=== PATIENT | male | born 1950 | race African-American/Black ===

== ENCOUNTER → 2016-11-20 | Outpatient (CLI) | payer MEDICARE ==
[2015-12-04 11:00] VITALS: BP 157/69
[~2016-11-20] MED LIST: ASPI-630 PO; CONTRAST GIVEN MC PRN
[2016-11-20 09:14] LABS: CREATININE 1.2 mg/dL (0.7-1.3); GFR 73.3
[2016-11-20] MEDS: IOHEXOL 240 MG/ML 50ML VIAL. PO ONE (09:30)
[2016-11-20] MEDS: IOHEXOL 300 MG/ML 75 ML VIAL IV ONE (09:30)
--- NOTE | 2016-11-20 11:30 | RAD ---
CT chest, abdomen and pelvis Indication: Malignant neoplasm of transverse colon. Surveillance scan. Technique: CT of the chest, abdomen and pelvis with 75 mL of Omnipaque 300 and 50 mL of Omnipaque 240 by mouth with multi planar reformats. Comparison: CT chest from 12/[address] abdomen/pelvis from 11/22/2015 Findings: CT chest: Neck bases clear. No axillary, hilar adenopathy. Shotty mediastinal lymph nodes. Aortic arch calcifications noted. Heart is normal in size. No pericardial or pleural effusion. Diffuse emphysematous changes in the lungs. Mild subsegmental atelectasis or scarring in the lung bases. No pulmonary nodules. No focal consolidation. 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 Spleen is within normal limits. No radiopaque gallstones. Pancreas show no focal lesion. Adrenal glands show no nodularity. Bilateral simple renal cysts. No suspicious renal lesion. No retroperitoneal or pelvic adenopathy. There is a lobulated minimally enhancing soft tissue in the central mesentery measuring 2.0 x 2.3 cm, new from prior study (series 4 image 36). Status post right hemicolectomy. No bowel obstruction. Scattered atherosclerotic disease of the infrarenal aorta and bilateral common iliac arteries. Bladder show circumferential wall thickening without focal lesion. Prostate is mildly enlarged measuring 5.0 x 3.9 cm with central calcification. Calcification of the right seminal vesicle noted. Surgical sutures seen within bilateral inguinal canals. Stable mixed lucent and sclerotic appearance of the L5 vertebral body likely intraosseous hemangioma. Severe L4-L5 lumbar facet arthropathy. Stable appearance of the left iliac bone with coarsened trabecula and internal patchy lucencies and sclerosis. Impression: 1. No evidence of metastatic disease in the chest or pelvis. 2. Lobulated soft tissue in the central mesentery, new from prior study concerning for metastatic implant. 3. Stable patchy appearance of the left iliac bone. Findings may be seen in Paget's disease. Clinically correlate with lab values. 4. Circumferential bladder wall thickening with mildly enlarged prostate. Findings may secondary to chronic bladder obstruction or cystitis. Correlate with urinalysis PQRS Compliance Statement: One or more of the following individualized dose reduction techniques were utilized for this examination: 1. Automated exposure control 2. Adjustment of the mA and/or kV according to patient size 3. Use of iterative reconstruction technique
== END | disposition home or self-care (01) ==
LOC: CT 08:47
PROVIDERS: ATTEND Internal Medicine Hematology & Oncology
DX: C18.4 Malignant neoplasm of transverse colon (principal); N30.90 Cystitis, unspecified without hematuria; N40.0 Benign prostatic hyperplasia without lower urinary tract symptoms; Z87.891 Personal history of nicotine dependence
CPT/HCPCS: 36415; 71260; 74177; 82565; Q9966; Q9967

== ENCOUNTER → 2016-12-06 | Outpatient (CLI) | payer MEDICARE ==
[2015-12-04 11:00] VITALS: BP 157/69
[~2016-12-06] MED LIST changes: -CONTRAST GIVEN MC PRN
--- NOTE | 2016-12-06 10:27 | RAD ---
Indication rising CEA. End. PET/CT was performed. CT was performed primarily for localization and attenuation purposes as opposed to primary diagnostic purposes. Note is made of the CT imaging of the chest, abdomen and pelvis 11/20/2016. The blood sugar during the examination was 119. 14.3 mCi of FDG was administered. No prior PET/CT imaging is available. On CT the visualized brain appears normal. No abnormality is seen in the neck. The chest, abdomen and pelvis appear unchanged relative to the recent CT imaging of same. The known mesenteric soft tissue mass is reproduced. Normal physiologic FDG activity is seen in the head. No abnormal activity is seen in the neck. There is slightly increased FDG activity in the esophagus. This may reflect inflammation. If esophageal pathology is suspect endoscopy would be advised. The FDG is otherwise physiologically distributed in the chest. In the abdomen the known soft tissue mesenteric mass is FDG avid with a maximum SUV of 7.4. The finding is most compatible with a metastatic implant. No additional significant abnormal activity is seen in the abdomen or pelvis. There is slightly increased FDG activity involving the left iliac bone at its far posterior margin. Some cortical thickening is noted in this area on CT. The findings may be a reflection of Paget disease. Sclerotic metastatic disease is felt less likely. IMPRESSION: Known soft tissue mesenteric mass is FDG avid most compatible with a metastatic implant. Slightly increased FDG activity in the esophagus may reflect mild inflammation. Clinical correlation advised. If esophageal pathology is suspect endoscopy would be advised Slightly increased FDG activity involving the left iliac bone. The etiology is unclear but likely benign
== END | disposition home or self-care (01) ==
LOC: PETSC 07:32
PROVIDERS: ATTEND Internal Medicine Hematology & Oncology
DX: C18.4 Malignant neoplasm of transverse colon (principal); R97.0 Elevated carcinoembryonic antigen [CEA]
CPT/HCPCS: 78815; A9552

== ENCOUNTER 2016-12-20 10:51 | Inpatient (IN) | payer MEDICARE ==
[2016-12-20] VITALS (9 sets, daily range): BP systolic 128–145; BP diastolic 78–87
[~2016-12-20] VITALS: Ht 172.7 cm; Wt 73.5 kg
[2016-12-20] MEDS: IV RINGERS,LACTATED 1000ML 1,000 ML IV SCH ×4 (10:40→19:15)
[~2016-12-20 10:51] MED LIST changes: +NEOM500T PO; +ceFAZolin 1GM IVPB FOR OMNI 1 GM/50 ML BAG IV ONE; +metroNIDAZOLE 500mg PREMIX 500 MG/100 ML BAG IV ONE
[2016-12-20] MEDS ORDERED: LIDOCAINE 1% PF 2 ML VIAL. ID PRN ×2 (11:15→17:30)
[2016-12-20] MEDS ORDERED: fentaNYL PF VIAL 100 MCG/2 ML VIAL IV PRN ×4 (11:15→17:30)
[2016-12-20] MEDS ORDERED: MIDAZOLAM HCL/PF 2 MG/2 ML VIAL. IV PRN (11:15)
[2016-12-20] MEDS ORDERED: BUPIVACAINE-EPI 0.25%-1:200000 50 ML VIAL. ONE (11:48)
[2016-12-20] MEDS ORDERED: LIDOCAINE 2% PF Vial for OR 5 ML VIAL. ONE (12:11)
[2016-12-20] MEDS ORDERED: FAMOTIDINE 20 MG/2 ML VIAL ONE (12:11)
[2016-12-20] MEDS ORDERED: PROPOFOL 20 ML IV ONE (12:11)
[2016-12-20] MEDS ORDERED: DEXAMETHASONE SOD PHOS 20 MG/5 ML VIAL. ONE (12:11)
[2016-12-20] MEDS ORDERED: ONDANSETRON PF 4 MG/2 ML VIAL. ONE (12:11)
[2016-12-20] MEDS ORDERED: MIDAZOLAM HCL/PF 2 MG/2 ML VIAL. ONE (12:13)
[2016-12-20] MEDS ORDERED: fentaNYL PF VIAL 100 MCG/2 ML VIAL ONE (12:13)
[2016-12-20] MEDS ORDERED: ROCURONIUM 50 MG/5 ML VIAL. ONE (12:13)
[2016-12-20] MEDS ORDERED: LIDOCAINE 2% TOPICAL JELLY 5GM TUBE. TP ONE (12:15)
[2016-12-20] MEDS ORDERED: SEVOFLURANE > 120 MINUTES. IH ONE (12:59)
[2016-12-20] MEDS ORDERED: 0.9 % SODIUM CHLORIDE 50 ML VIAL. IJ ONE (13:09)
[2016-12-20] MEDS ORDERED: MORPHINE SULFATE 10 MG/ML VIAL. ONE (13:10)
[2016-12-20] MEDS ORDERED: BUPIVACAINE-EPI 0.5%-1:200000 50 ML VIAL. ONE (14:04)
[2016-12-20] MEDS ORDERED: NEOSTIGMINE 10 MG/10 ML VIAL. ONE (15:15)
[2016-12-20] MEDS ORDERED: GLYCOPYRROLATE 1 MG/5 ML VIAL. ONE (15:15)
[2016-12-20] MEDS ORDERED: 0.9 % SODIUM CHLORIDE 10 ML DISP.SYRIN. IV PRN (16:45)
[2016-12-20] MEDS ORDERED: ceFAZolin SODIUM 1 GM in IV DEXTROSE 5% 50 ML IV SCH (16:45)
[2016-12-20] MEDS ORDERED: KETOROLAC 15 MG/ML VIAL. IV PRN (16:45)
[2016-12-20] MEDS ORDERED: ONDANSETRON PF 4 MG/2 ML VIAL. IV PRN ×2 (16:45→17:30)
[2016-12-20] MEDS ORDERED: PROCHLORPERAZINE 10 MG/2 ML VIAL. ONE (17:23)
[2016-12-20] MEDS ORDERED: IV RINGERS,LACTATED 1000ML 1,000 ML IV SCH (17:24)
[2016-12-20] MEDS ORDERED: PROCHLORPERAZINE 10 MG/2 ML VIAL. IV PRN (17:30)
[2016-12-20] MEDS ORDERED: HYDROmorphone 2 MG/ML VIAL IV PRN (17:30)
[2016-12-20] MEDS ORDERED: MORPHINE SULFATE 2 MG/ML DISP.SYRIN. IV PRN (17:30)
[2016-12-20] MEDS: POTASSIUM CL 20MEQ-0.45% NACL 1,000 ML IV SCH (22:26)
[2016-12-20] MEDS: FAMOTIDINE 20 MG/2 ML VIAL IVP SCH (22:27)
[2016-12-20] MEDS: ceFAZolin SODIUM IV Push 1 GM VIAL. IVP SCH (22:27)
[2016-12-21 03:00] VITALS: BP 120/88
[2016-12-21 05:17] LABS: BASO % 0 % (0-3); EOS % 0 % (0-3); HEMATOCRIT 45.3 % (39.0-53.0); LYMPH % 13 % (24-48); MEAN CORPUSCULAR HEMOGLOBIN 30 pg (25-35); MEAN CORPUSCULAR HGB CONC 33 g/dL (31-37); MEAN CORPUSCULAR VOLUME 89 fL (79-100); MONO % 10 % (0-9); NEUT % 77 % (31-73); PLATELET COUNT 216 x10^3/uL (140-400); RED BLOOD COUNT 5.08 x10^6/uL (4.30-5.70); RED CELL DISTRIBUTION WIDTH 13.9 % (11.5-14.5); WHITE BLOOD COUNT 7.6 x10^3/uL (4.0-11.0)
[2016-12-21 05:21] LABS: ALBUMIN 3.4 g/dL (3.4-5.0); ALBUMIN/GLOBULIN RATIO 0.9 (1.0-1.7); CALCIUM 8.5 mg/dL (8.5-10.1); CREATININE 1.1 mg/dL (0.7-1.3); TOTAL PROTEIN 7.2 g/dL (6.4-8.2)
[2016-12-21 05:22] LABS: TOTAL BILIRUBIN 0.8 mg/dL (0.2-1.0)
[2016-12-21] MEDS: ceFAZolin SODIUM IV Push 1 GM VIAL. IVP SCH ×2 (05:31→14:40)
[2016-12-21] MEDS: POTASSIUM CL 20MEQ-0.45% NACL 1,000 ML IV SCH ×3 (05:32→16:26)
[2016-12-21] MEDS ORDERED: SALIVA STIMULANT AGENT 44ML SPRAY BOTTLE. PO PRN (06:45)
[2016-12-21 07:00] VITALS: BP 132/83
[2016-12-21] MEDS: FAMOTIDINE 20 MG/2 ML VIAL IVP SCH ×2 (10:08→21:11)
--- NOTE | 2016-12-21 10:12 | PDOC ---
SURGICAL PROGRESS NOTE Subjective POD #1 Doing very well POD 1. He is very alert and has the normal incisional pain that is controlled with pain meds. Says he feels well but is having a little trouble breathing which is likely due to post op pain and sleep apnea that he has.. He has normal breath sounds bilaterally. He says he has been using his incentive spirometer and will continue to do so. Will have oncologist see patient and the med team also follow. Vital Signs Vital Signs Date Time Temp Pulse Resp B/P (MAP) Pulse Ox O2 Delivery O2 Flow Rate FiO2 12/21/16 07:00 98.1 84 20 132/83 (99) 96 Nasal Cannula 2.0 98.1 Labs Laboratory Tests Test 12/21/16 04:15 White Blood Count 7.6 x10^3/uL (4.0-11.0) Red Blood Count 5.08 x10^6/uL (4.30-5.70) Hemoglobin 15.0 g/dL (13.0-17.5) Hematocrit 45.3 % (39.0-53.0) Mean Corpuscular Volume 89 fL (79-100) Mean Corpuscular Hemoglobin 30 pg (25-35) Mean Corpuscular Hemoglobin Concent 33 g/dL (31-37) Red Cell Distribution Width 13.9 % (11.5-14.5) Platelet Count 216 x10^3/uL (140-400) Neutrophils (%) (Auto) 77 % (31-73) Lymphocytes (%) (Auto) 13 % (24-48) Monocytes (%) (Auto) 10 % (0-9) Eosinophils (%) (Auto) 0 % (0-3) Basophils (%) (Auto) 0 % (0-3) Neutrophils # (Auto) 5.8 x10^3uL (1.8-7.7) Lymphocytes # (Auto) 1.0 x10^3/uL (1.0-4.8) Monocytes # (Auto) 0.7 x10^3/uL (0.0-1.1) Eosinophils # (Auto) 0.0 x10^3/uL (0.0-0.7) Basophils # (Auto) 0.0 x10^3/uL (0.0-0.2) Sodium Level 138 mmol/L (136-145) Potassium Level 5.0 mmol/L (3.5-5.1) Chloride Level 104 mmol/L (98-107) Carbon Dioxide Level 27 mmol/L (21-32) Anion Gap 7 (6-14) Blood Urea Nitrogen 17 mg/dL (8-26) Creatinine 1.1 mg/dL (0.7-1.3) Estimated GFR (Cockcroft-Gault) 81.0 BUN/Creatinine Ratio 15 (6-20) Glucose Level 132 mg/dL (70-99) Calcium Level 8.5 mg/dL (8.5-10.1) Total Bilirubin 0.8 mg/dL (0.2-1.0) Aspartate Amino Transf (AST/SGOT) 20 U/L (15-37) Alanine Aminotransferase (ALT/SGPT) 27 U/L (16-63) Alkaline Phosphatase 80 U/L (46-116) Total Protein 7.2 g/dL (6.4-8.2) Albumin 3.4 g/dL (3.4-5.0) Albumin/Globulin Ratio 0.9 (1.0-1.7) Laboratory Tests Test 12/21/16 04:15 White Blood Count 7.6 x10^3/uL (4.0-11.0) Red Blood Count 5.08 x10^6/uL (4.30-5.70) Hemoglobin 15.0 g/dL (13.0-17.5) Hematocrit 45.3 % (39.0-53.0) Mean Corpuscular Volume 89 fL (79-100) Mean Corpuscular Hemoglobin 30 pg (25-35) Mean Corpuscular Hemoglobin Concent 33 g/dL (31-37) Red Cell Distribution Width 13.9 % (11.5-14.5) Platelet Count 216 x10^3/uL (140-400) Neutrophils (%) (Auto) 77 % (31-73) Lymphocytes (%) (Auto) 13 % (24-48) Monocytes (%) (Auto) 10 % (0-9) Eosinophils (%) (Auto) 0 % (0-3) Basophils (%) (Auto) 0 % (0-3) Neutrophils # (Auto) 5.8 x10^3uL (1.8-7.7) Lymphocytes # (Auto) 1.0 x10^3/uL (1.0-4.8) Monocytes # (Auto) 0.7 x10^3/uL (0.0-1.1) Eosinophils # (Auto) 0.0 x10^3/uL (0.0-0.7) Basophils # (Auto) 0.0 x10^3/uL (0.0-0.2) Sodium Level 138 mmol/L (136-145) Potassium Level 5.0 mmol/L (3.5-5.1) Chloride Level 104 mmol/L (98-107) Carbon Dioxide Level 27 mmol/L (21-32) Anion Gap 7 (6-14) Blood Urea Nitrogen 17 mg/dL (8-26) Creatinine 1.1 mg/dL (0.7-1.3) Estimated GFR (Cockcroft-Gault) 81.0 BUN/Creatinine Ratio 15 (6-20) Glucose Level 132 mg/dL (70-99) Calcium Level 8.5 mg/dL (8.5-10.1) Total Bilirubin 0.8 mg/dL (0.2-1.0) Aspartate Amino Transf (AST/SGOT) 20 U/L (15-37) Alanine Aminotransferase (ALT/SGPT) 27 U/L (16-63) Alkaline Phosphatase 80 U/L (46-116) Total Protein 7.2 g/dL (6.4-8.2) Albumin 3.4 g/dL (3.4-5.0) Albumin/Globulin Ratio 0.9 (1.0-1.7) TRICIA LOPEZ MD Dec 21, 2016 10:12
--- NOTE | 2016-12-21 10:26 | OP ---
DATE OF SURGERY: 12/20/2016 SURGEON: Abel Lopez MD. PREOPERATIVE DIAGNOSIS: Intra-abdominal tumor. POSTOPERATIVE DIAGNOSIS: Intra-abdominal tumor in the mesentery between the mesocolon and the small bowel. ANESTHESIA: General. PROCEDURE: Enterolysis with exploratory laparotomy and excision of mass of abdomen. The patient had colon cancer and had only 1 mets seen on PET scan and the oncologist decided to make sense to remove this one localization of tumor; therefore, the surgery was done. TECHNIQUE: Under general anesthesia, the patient was properly prepped and draped in routine fashion. The patient's abdomen was entered through the midline incision that had previously been made. We made certain not to injure any intraabdominal contents been very slow. The adhesions were fairly minimum as Seprafilm was used during the previous operation. We then after entering the abdomen, opened it up above and below the umbilicus. We then identified the colon and divided only a small bit of adhesions and we could see where the anastomosis of the small bowel and colon was done. We then divided some of the adhesions around the area and at the area where we had sutured the mesentery of the colon and small bowel together. Deep to this was a mass. The mass was about 3 cm or 4 cm in size. We had a difficult time getting to it, but we divided the serosa over it and then slowly divided the attachments to it. It looked like it may have been a lymph node, but could tell, we were very gentle and went very slowly so as not to avoid mesenteric vessels especially to the small bowel. We slowly removed the mass with some difficulty and no bleeding. This was sent to pathology. I did get a frozen section to make certain what was going on. The patient had previously had localization radiographically and the dye was seen there also. The pathologist did confirm that it was infiltrating adenocarcinoma, same type seen at the colon resection surgery, so this was metastasis to the lymph node we assume. As such, the only 1 side of the mesentery had been opened and we did not close it. We simply put all the bowel back into normal position and did do Seprafilm again. Sponge count, lap count and all counts were correct and we therefore proceeded to close the abdomen. #1 Prolene interrupted sutures were used to close the fascia and the subcutaneous was approximated using #4-0 Vicryl and the skin was closed using skin staplers. The procedure was terminated as sterile dressing was applied. The blood loss was probably 20-25 mL. Fluids given can be obtained from the anesthesia sheet. No drains were used and the condition of the patient is satisfactory as he has returned to the recovery room. ABEL LOPEZ MD DR: BETH/tania JOB#: [id number] / [id number]
[2016-12-21 11:00] VITALS: BP 120/76
--- NOTE | 2016-12-21 11:16 | HP ---
ADMIT DATE: 12/20/2016 HISTORY OF PRESENT ILLNESS: The patient is admitted because of a lesion found on CT scan in the mesentery. He has a pertinent history and that he did have about a year ago, transverse and right colon resection for adenocarcinoma infiltrating of the colon. Actually the tumor and the mass was closer to the splenic flexure of the transverse colon. He had other lesions and these were removed. He did well postoperatively, chemotherapy was offered, he did not want chemotherapy. He discussed with the oncologist. Now, he has recently had a CEA that was elevated and also has PET scan which shows a hot area in the mesentery and also on CT. He therefore had seen the oncologist and they suggest removing this mass, he has no evidence of any spread of the tumor anywhere else in the body. He agrees and that is why he is here. PAST MEDICAL HISTORY: Otherwise, is not changed from his previous history and physical done prior to surgery. ALLERGIES: He has no allergies. FAMILY HISTORY: Negative. No history of cancer. SOCIAL HISTORY: Shows that he does not use illicit drugs, smokes about a half a pack of cigarettes per day and drinks only socially not enough to get inebriated. PHYSICAL EXAMINATION: HEAD, EYES, NOSE AND THROAT: Grossly normal. CHEST: Clear bilaterally to auscultation. HEART: Had no murmurs, heaves, friction rubs or thrills and had a regular rate of 70 beats per minute. ABDOMEN: Soft, did have a midline scar of previous surgery, otherwise no hernia or other abnormalities. His pelvic did have 2 scars from repair of a right and left inguinal hernia that he had done many years ago. RECTAL: Not done. He did have a recent colonoscopy, which was normal. IMPRESSION: 1. Tumor mesentery of the mesocolon. 2. History of infiltrating adenocarcinoma of the transverse colon. 3. Hypercholesterolemia. TRICIA LOPEZ MD DR: BETH/tania JOB#: [id number] / [id number]
[2016-12-21 15:00] VITALS: BP 138/85
--- NOTE | 2016-12-21 17:48 | PDOC ---
Provider Note Provider Note Hem Onc Consult: 1. Recurrent colon ca s/p mesenteric mass resection 12/20/16 Await path results See dictation [id number] DAPHNEY NAIDU MD Dec 21, 2016 17:48
[2016-12-21 19:05] VITALS: BP 128/87
[2016-12-21 23:05] VITALS: BP 112/73
[2016-12-22] MEDS: IV NORMAL SALINE 1000ML BAG 1,000 ML IV SCH ×3 (01:02→10:59)
[2016-12-22 03:05] VITALS: BP 130/81
[2016-12-22 05:45] LABS: BASO % 1 % (0-3); EOS % 2 % (0-3); HEMATOCRIT 39.3 % (39.0-53.0); LYMPH # 1.2 x10^3/uL (1.0-4.8); LYMPH % 20 % (24-48); MEAN CORPUSCULAR HEMOGLOBIN 30 pg (25-35); MEAN CORPUSCULAR HGB CONC 33 g/dL (31-37); MEAN CORPUSCULAR VOLUME 89 fL (79-100); MONO % 8 % (0-9); NEUT % 70 % (31-73); PLATELET COUNT 156 x10^3/uL (140-400); RED CELL DISTRIBUTION WIDTH 14.3 % (11.5-14.5); WHITE BLOOD COUNT 5.8 x10^3/uL (4.0-11.0)
[2016-12-22 05:46] LABS: CALCIUM 8.3 mg/dL (8.5-10.1); GFR 90.5; POTASSIUM 4.1 mmol/L (3.5-5.1)
[2016-12-22 07:00] VITALS: BP 127/75
[2016-12-22] MEDS: FAMOTIDINE 20 MG/2 ML VIAL IVP SCH ×2 (10:28→20:51)
[2016-12-22 11:00] VITALS: BP 106/60
--- NOTE | 2016-12-22 12:10 | PDOC ---
SURGICAL PROGRESS NOTE Subjective POD#2 Continues to do well. WBC normal and he feels fine. Will start clear liquids and heparin. wound OK. Will ambulate more and hope to discharge in 2-3 days. Vital Signs Vital Signs Date Time Temp Pulse Resp B/P (MAP) Pulse Ox O2 Delivery O2 Flow Rate FiO2 12/22/16 07:00 99.9 90 16 127/75 (92) 98 Room Air 99.9 12/22/16 03:05 2.0 Labs Laboratory Tests Test 12/21/16 04:15 12/22/16 04:45 White Blood Count 7.6 x10^3/uL (4.0-11.0) 5.8 x10^3/uL (4.0-11.0) Red Blood Count 5.08 x10^6/uL (4.30-5.70) 4.40 x10^6/uL (4.30-5.70) Hemoglobin 15.0 g/dL (13.0-17.5) 13.0 g/dL (13.0-17.5) Hematocrit 45.3 % (39.0-53.0) 39.3 % (39.0-53.0) Mean Corpuscular Volume 89 fL (79-100) 89 fL (79-100) Mean Corpuscular Hemoglobin 30 pg (25-35) 30 pg (25-35) Mean Corpuscular Hemoglobin Concent 33 g/dL (31-37) 33 g/dL (31-37) Red Cell Distribution Width 13.9 % (11.5-14.5) 14.3 % (11.5-14.5) Platelet Count 216 x10^3/uL (140-400) 156 x10^3/uL (140-400) Neutrophils (%) (Auto) 77 % (31-73) 70 % (31-73) Lymphocytes (%) (Auto) 13 % (24-48) 20 % (24-48) Monocytes (%) (Auto) 10 % (0-9) 8 % (0-9) Eosinophils (%) (Auto) 0 % (0-3) 2 % (0-3) Basophils (%) (Auto) 0 % (0-3) 1 % (0-3) Neutrophils # (Auto) 5.8 x10^3uL (1.8-7.7) 4.0 x10^3uL (1.8-7.7) Lymphocytes # (Auto) 1.0 x10^3/uL (1.0-4.8) 1.2 x10^3/uL (1.0-4.8) Monocytes # (Auto) 0.7 x10^3/uL (0.0-1.1) 0.5 x10^3/uL (0.0-1.1) Eosinophils # (Auto) 0.0 x10^3/uL (0.0-0.7) 0.1 x10^3/uL (0.0-0.7) Basophils # (Auto) 0.0 x10^3/uL (0.0-0.2) 0.0 x10^3/uL (0.0-0.2) Sodium Level 138 mmol/L (136-145) 141 mmol/L (136-145) Potassium Level 5.0 mmol/L (3.5-5.1) 4.1 mmol/L (3.5-5.1) Chloride Level 104 mmol/L (98-107) 107 mmol/L (98-107) Carbon Dioxide Level 27 mmol/L (21-32) 27 mmol/L (21-32) Anion Gap 7 (6-14) 7 (6-14) Blood Urea Nitrogen 17 mg/dL (8-26) 13 mg/dL (8-26) Creatinine 1.1 mg/dL (0.7-1.3) 1.0 mg/dL (0.7-1.3) Estimated GFR (Cockcroft-Gault) 81.0 90.5 BUN/Creatinine Ratio 15 (6-20) Glucose Level 132 mg/dL (70-99) 83 mg/dL (70-99) Calcium Level 8.5 mg/dL (8.5-10.1) 8.3 mg/dL (8.5-10.1) Total Bilirubin 0.8 mg/dL (0.2-1.0) Aspartate Amino Transf (AST/SGOT) 20 U/L (15-37) Alanine Aminotransferase (ALT/SGPT) 27 U/L (16-63) Alkaline Phosphatase 80 U/L (46-116) Total Protein 7.2 g/dL (6.4-8.2) Albumin 3.4 g/dL (3.4-5.0) Albumin/Globulin Ratio 0.9 (1.0-1.7) Laboratory Tests Test 12/22/16 04:45 White Blood Count 5.8 x10^3/uL (4.0-11.0) Red Blood Count 4.40 x10^6/uL (4.30-5.70) Hemoglobin 13.0 g/dL (13.0-17.5) Hematocrit 39.3 % (39.0-53.0) Mean Corpuscular Volume 89 fL (79-100) Mean Corpuscular Hemoglobin 30 pg (25-35) Mean Corpuscular Hemoglobin Concent 33 g/dL (31-37) Red Cell Distribution Width 14.3 % (11.5-14.5) Platelet Count 156 x10^3/uL (140-400) Neutrophils (%) (Auto) 70 % (31-73) Lymphocytes (%) (Auto) 20 % (24-48) Monocytes (%) (Auto) 8 % (0-9) Eosinophils (%) (Auto) 2 % (0-3) Basophils (%) (Auto) 1 % (0-3) Neutrophils # (Auto) 4.0 x10^3uL (1.8-7.7) Lymphocytes # (Auto) 1.2 x10^3/uL (1.0-4.8) Monocytes # (Auto) 0.5 x10^3/uL (0.0-1.1) Eosinophils # (Auto) 0.1 x10^3/uL (0.0-0.7) Basophils # (Auto) 0.0 x10^3/uL (0.0-0.2) Sodium Level 141 mmol/L (136-145) Potassium Level 4.1 mmol/L (3.5-5.1) Chloride Level 107 mmol/L (98-107) Carbon Dioxide Level 27 mmol/L (21-32) Anion Gap 7 (6-14) Blood Urea Nitrogen 13 mg/dL (8-26) Creatinine 1.0 mg/dL (0.7-1.3) Estimated GFR (Cockcroft-Gault) 90.5 Glucose Level 83 mg/dL (70-99) Calcium Level 8.3 mg/dL (8.5-10.1) TRICIA LOPEZ MD Dec 22, 2016 12:10
--- NOTE | 2016-12-22 13:02 | PDOC ---
Provider Note Provider Note Pt seen , consult dictated. spoke with dr Bourgeois. #[id number] GEOFF WEBER MD Dec 22, 2016 13:02
[2016-12-22] MEDS: HEPARIN PF for SUB-Q USE 5,000 UNIT/0.5 ML VIAL. SQ SCH (14:25)
--- NOTE | 2016-12-22 14:41 | CONS ---
DATE OF CONSULTATION: 12/21/[address] Abel Parks. REASON FOR CONSULTATION: Recurrent colon cancer, now presenting with mesenteric mass. HISTORY OF PRESENT ILLNESS: The patient is a 66-year-old -[place] gentleman who had a screening colonoscopy in October of 2015, which revealed a polyp and the pathology revealed adenocarcinoma. He underwent a right hemicolectomy by Dr. Abel Parks on 11/29/2015. This revealed moderately differentiated adenocarcinoma with no evidence of metastasis to the lymph nodes. It was staged as a T3 N0 M0, stage IIA colon cancer. He had 10 lymph nodes examined and they were all negative. I had recommended adjuvant chemotherapy, but the patient declined. He underwent a CT scan of the abdomen on 11/20/2016 which revealed a 2 x 2.3 cm soft tissue mass in the central mesentery which is new when compared to the previous scan. CEA level was elevated at 11.3 on 11/28/2016. PET scan was performed on 12/06/2016 which revealed increased activity in the soft tissue mesenteric mass with an SUV of 7.4 compatible with a metastatic implant. The patient was subsequently evaluated by Dr. Abel Parks for consideration of resection. The patient underwent exploratory laparotomy and excision of the mass on 12/20/2016. He is undergoing postoperative care at this time. PAST MEDICAL HISTORY: Hyperlipidemia, vitamin D deficiency. PAST SURGICAL HISTORY: Bilateral hernia repair, history of right hemicolectomy on 11/29/2015, exploratory laparotomy on 12/20/2016 with excision of mesenteric mass as described above. FAMILY HISTORY: Sister had a brain cancer as a child. SOCIAL HISTORY: He has history of smoking cigarettes that he has quit in November of 2015. REVIEW OF SYSTEMS: A 12-point review of system was performed. Pertinent positives are mentioned in the history of present illness. Rest of the system review is negative. PHYSICAL EXAMINATION: GENERAL APPEARANCE: The patient is a 66-year-old -[place] gentleman who is in no acute cardiorespiratory distress. VITAL SIGNS: Blood pressure 120/76, temperature 99.3. HEAD: Atraumatic, normocephalic. EYES: No icterus. NECK: Supple. CHEST: Bilaterally symmetrical. HEART: S1, S2 normal. ABDOMEN: Soft. Postop dressing is in place. CENTRAL NERVOUS SYSTEM: No focal deficits. LYMPHATICS: No lymphadenopathy. SKIN: No rashes. PSYCHOLOGIC: Mood and affect are appropriate. MUSCULOSKELETAL: No joint effusions. LABORATORY DATA: WBC 7.6, hemoglobin 15, platelet count 216. IMPRESSION AND PLAN: 1. Recurrent colon cancer. He was diagnosed with colon cancer in October of 2015 and he underwent a right hemicolectomy on 11/29/2015. It was staged as a T3 N0 M0, stage IIA colon cancer. Ten lymph nodes were examined and they were not involved. Adjuvant chemotherapy was recommended but the patient declined. Surveillance CT scan on 11/20/2016 revealed a 2.3 cm soft tissue mass in the central mesentery and a PET scan was positive on 12/06/2016 for a solitary metastatic implant. Hence, exploratory laparotomy and resection was recommended and he underwent a procedure on 12/20/2016. I will await the pathology results. If malignancy is confirmed, I would recommend adjuvant chemotherapy. I discussed in detail with the patient. He understands and agrees with the plan. 2. Abdominal pain postoperative. Continue pain management per Dr. Parks. DAPHNEY NAIDU MD DR: RACHAEL/tania JOB#: [id number] / [id number]
[2016-12-22 15:00] VITALS: BP 131/75
[2016-12-22] MEDS: IV 1/2 NORMAL SALINE 1,000 ML IV SCH (17:52)
[2016-12-22 20:46] VITALS: BP 130/79
[2016-12-22] MEDS: ACETAMINOPHEN 325 MG TABLET. PO PRN (20:50)
[2016-12-22 23:19] VITALS: BP 116/81
[2016-12-23] MEDS: HEPARIN PF for SUB-Q USE 5,000 UNIT/0.5 ML VIAL. SQ SCH ×2 (00:34→13:21)
--- NOTE | 2016-12-23 01:07 | CONS ---
DATE OF CONSULTATION: 12/21/2016 LOCATION: 432. ATTENDING PHYSICIAN: Abel Parks MD PRIMARY CARE PHYSICIAN: Dr. Arnel French. REASON FOR CONSULTATION: Primary care medical followup. HISTORY OF PRESENT ILLNESS: The patient is a 66-year-old male. The patient had a history of colon cancer that was last year, had a right colon and transverse colon resection for adenocarcinoma and postop, he was offered chemo, but he refused and his CA recently was elevated, had a PET scan, which shows a hot area in the mesentery. The patient was taken to surgery and the patient had surgery yesterday. The tumor in the mesentery was removed. I was asked to see postop because his primary care physician does not come here. PAST MEDICAL HISTORY: Diagnosed with colon cancer recently, last year, and denies heart problems, diabetes or strokes. PAST SURGICAL HISTORY: Had surgery last year for colon cancer, had a part of the colon removed. ALLERGIES: No allergies. MEDICATIONS: None. FAMILY HISTORY: Negative for cancer. SOCIAL HISTORY: Smoked for 30 years, 1/2 a pack to 1 pack. REVIEW OF SYMPTOMS: The patient says he did not sleep after surgery, the last 2 days. PHYSICAL EXAMINATION: HEENT: Head is atraumatic. Pupils equal. Oral cavity, no congestion. NECK: Supple. Thyroid not enlarged. JVD not elevated. CHEST: Symmetrical. CARDIOVASCULAR: S1, S2. LUNGS: Clear. ABDOMEN: Has a dressing and a binder, did not examine at this time. EXTERNAL GENITALIA: No Wynn. RECTAL: Deferred. EXTREMITIES: No calf tenderness, no edema. LABORATORY DATA: Shows a white count of 7, hemoglobin 15, platelets 216. Electrolytes show sodium 138, potassium 5.0, chloride 104, bicarb 27, BUN 17, creatinine 1.1, glucose 132. LFTs were normal. His CEA was 19.6 on 12/18/2016. FINAL IMPRESSION: 1. Mesenteric mass, presumably because of history of adenocarcinoma of the colon. 2. History of adenocarcinoma of the colon, had a partial colon resection last year. PLAN: At this time, the patient was admitted to the hospital, had surgery, removed the mass in the mesentery and Oncology was consulted and the patient is recovering from surgery. deep venous thrombosis prevention with sequential compression devices and REGINA hose and see how the patient's condition improves. Again, thank you, Dr. Parks for allowing me to participate in the care of this patient. GEOFF WEBER MD DR: LALO/tania JOB#: [id number] / [id number]
[2016-12-23 03:00] VITALS: BP 127/82
[2016-12-23 05:38] LABS: BASO % 1 % (0-3); EOS % 3 % (0-3); HEMATOCRIT 38.6 % (39.0-53.0); HEMOGLOBIN 12.8 g/dL (13.0-17.5); LYMPH # 1.4 x10^3/uL (1.0-4.8); LYMPH % 25 % (24-48); MEAN CORPUSCULAR HEMOGLOBIN 29 pg (25-35); MEAN CORPUSCULAR HGB CONC 33 g/dL (31-37); MEAN CORPUSCULAR VOLUME 89 fL (79-100); MONO % 7 % (0-9); NEUT % 65 % (31-73); PLATELET COUNT 142 x10^3/uL (140-400); RED BLOOD COUNT 4.36 x10^6/uL (4.30-5.70); RED CELL DISTRIBUTION WIDTH 13.6 % (11.5-14.5); WHITE BLOOD COUNT 5.4 x10^3/uL (4.0-11.0)
[2016-12-23] MEDS: IV 1/2 NORMAL SALINE 1,000 ML IV SCH ×2 (05:46→16:03)
[2016-12-23 06:18] LABS: CALCIUM 8.3 mg/dL (8.5-10.1); CREATININE 0.9 mg/dL (0.7-1.3); GFR 102.2; POTASSIUM 3.7 mmol/L (3.5-5.1)
[2016-12-23 07:00] VITALS: BP 132/82
[2016-12-23] MEDS: FAMOTIDINE 20 MG/2 ML VIAL IVP SCH ×2 (09:09→21:00)
[2016-12-23] MEDS: ACETAMINOPHEN 325 MG TABLET. PO PRN (09:54)
[2016-12-23 11:00] VITALS: BP 132/83
--- NOTE | 2016-12-23 11:25 | PDOC ---
SURGICAL PROGRESS NOTE Subjective POD#3 Continues to do well without nausea and taking PO liquids normally. No flatus yet and had a temp 100 over night. Now temp normal and and wbc normal. No evidence of inflammation and has no calf tenderness or IV erythema or pain. Dressing changed and wound healing without evidence of compilation. Wilol keep clear liquids and not advance diet until flatus is noted.. Vital Signs Vital Signs Date Time Temp Pulse Resp B/P (MAP) Pulse Ox O2 Delivery O2 Flow Rate FiO2 12/23/16 07:00 98.5 85 18 132/82 (99) 95 Room Air 98.5 12/22/16 08:00 2.0 Labs Laboratory Tests Test 12/22/16 04:45 12/23/16 05:12 White Blood Count 5.8 x10^3/uL (4.0-11.0) 5.4 x10^3/uL (4.0-11.0) Red Blood Count 4.40 x10^6/uL (4.30-5.70) 4.36 x10^6/uL (4.30-5.70) Hemoglobin 13.0 g/dL (13.0-17.5) 12.8 g/dL (13.0-17.5) Hematocrit 39.3 % (39.0-53.0) 38.6 % (39.0-53.0) Mean Corpuscular Volume 89 fL (79-100) 89 fL (79-100) Mean Corpuscular Hemoglobin 30 pg (25-35) 29 pg (25-35) Mean Corpuscular Hemoglobin Concent 33 g/dL (31-37) 33 g/dL (31-37) Red Cell Distribution Width 14.3 % (11.5-14.5) 13.6 % (11.5-14.5) Platelet Count 156 x10^3/uL (140-400) 142 x10^3/uL (140-400) Neutrophils (%) (Auto) 70 % (31-73) 65 % (31-73) Lymphocytes (%) (Auto) 20 % (24-48) 25 % (24-48) Monocytes (%) (Auto) 8 % (0-9) 7 % (0-9) Eosinophils (%) (Auto) 2 % (0-3) 3 % (0-3) Basophils (%) (Auto) 1 % (0-3) 1 % (0-3) Neutrophils # (Auto) 4.0 x10^3uL (1.8-7.7) 3.6 x10^3uL (1.8-7.7) Lymphocytes # (Auto) 1.2 x10^3/uL (1.0-4.8) 1.4 x10^3/uL (1.0-4.8) Monocytes # (Auto) 0.5 x10^3/uL (0.0-1.1) 0.4 x10^3/uL (0.0-1.1) Eosinophils # (Auto) 0.1 x10^3/uL (0.0-0.7) 0.1 x10^3/uL (0.0-0.7) Basophils # (Auto) 0.0 x10^3/uL (0.0-0.2) 0.0 x10^3/uL (0.0-0.2) Sodium Level 141 mmol/L (136-145) 137 mmol/L (136-145) Potassium Level 4.1 mmol/L (3.5-5.1) 3.7 mmol/L (3.5-5.1) Chloride Level 107 mmol/L (98-107) 103 mmol/L (98-107) Carbon Dioxide Level 27 mmol/L (21-32) 27 mmol/L (21-32) Anion Gap 7 (6-14) 7 (6-14) Blood Urea Nitrogen 13 mg/dL (8-26) 11 mg/dL (8-26) Creatinine 1.0 mg/dL (0.7-1.3) 0.9 mg/dL (0.7-1.3) Estimated GFR (Cockcroft-Gault) 90.5 102.2 Glucose Level 83 mg/dL (70-99) 90 mg/dL (70-99) Calcium Level 8.3 mg/dL (8.5-10.1) 8.3 mg/dL (8.5-10.1) Laboratory Tests Test 12/23/16 05:12 White Blood Count 5.4 x10^3/uL (4.0-11.0) Red Blood Count 4.36 x10^6/uL (4.30-5.70) Hemoglobin 12.8 g/dL (13.0-17.5) Hematocrit 38.6 % (39.0-53.0) Mean Corpuscular Volume 89 fL (79-100) Mean Corpuscular Hemoglobin 29 pg (25-35) Mean Corpuscular Hemoglobin Concent 33 g/dL (31-37) Red Cell Distribution Width 13.6 % (11.5-14.5) Platelet Count 142 x10^3/uL (140-400) Neutrophils (%) (Auto) 65 % (31-73) Lymphocytes (%) (Auto) 25 % (24-48) Monocytes (%) (Auto) 7 % (0-9) Eosinophils (%) (Auto) 3 % (0-3) Basophils (%) (Auto) 1 % (0-3) Neutrophils # (Auto) 3.6 x10^3uL (1.8-7.7) Lymphocytes # (Auto) 1.4 x10^3/uL (1.0-4.8) Monocytes # (Auto) 0.4 x10^3/uL (0.0-1.1) Eosinophils # (Auto) 0.1 x10^3/uL (0.0-0.7) Basophils # (Auto) 0.0 x10^3/uL (0.0-0.2) Sodium Level 137 mmol/L (136-145) Potassium Level 3.7 mmol/L (3.5-5.1) Chloride Level 103 mmol/L (98-107) Carbon Dioxide Level 27 mmol/L (21-32) Anion Gap 7 (6-14) Blood Urea Nitrogen 11 mg/dL (8-26) Creatinine 0.9 mg/dL (0.7-1.3) Estimated GFR (Cockcroft-Gault) 102.2 Glucose Level 90 mg/dL (70-99) Calcium Level 8.3 mg/dL (8.5-10.1) TRICIA LOPEZ MD Dec 23, 2016 11:25
--- NOTE | 2016-12-23 12:16 | PDOC ---
PROGRESS NOTES Subjective Subjective want something to help him sleep Objective Objective Vital Signs Date Time Temp Pulse Resp B/P (MAP) Pulse Ox O2 Delivery O2 Flow Rate FiO2 12/23/16 11:00 98.8 86 18 132/83 (99) 95 Room Air 98.8 12/22/16 08:00 2.0 Physical Exam Abdomen: Soft, Other (incision clean) Heart: Normal S1, Normal S2 General: Alert HEENT: Atraumatic Lungs: Clear to auscultation MUSCULOSKELETAL: No deformity Neuro: Normal speech Psych/Mental Status: Mental status NL Skin: No breakdown Assessment Assessment 1. Mesenteric mass, s/p resection, pod#2 2. History of adenocarcinoma of the colon, had a partial colon resection last year. PLAN: ambien for sleep. 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 At this time, the patient was admitted to the hospital, had surgery, removed the mass in the mesentery and Oncology was consulted and the patient is recovering from surgery. deep venous thrombosis prevention with sequential compression devices and REGINA hose and see how the patient's condition improves. Problems: Comment Review of Relevant I have reviewed the following items sarath (where applicable) has been applied. Labs Laboratory Tests Test 12/23/16 05:12 White Blood Count 5.4 x10^3/uL (4.0-11.0) Red Blood Count 4.36 x10^6/uL (4.30-5.70) Hemoglobin 12.8 g/dL (13.0-17.5) Hematocrit 38.6 % (39.0-53.0) Mean Corpuscular Volume 89 fL (79-100) Mean Corpuscular Hemoglobin 29 pg (25-35) Mean Corpuscular Hemoglobin Concent 33 g/dL (31-37) Red Cell Distribution Width 13.6 % (11.5-14.5) Platelet Count 142 x10^3/uL (140-400) Neutrophils (%) (Auto) 65 % (31-73) Lymphocytes (%) (Auto) 25 % (24-48) Monocytes (%) (Auto) 7 % (0-9) Eosinophils (%) (Auto) 3 % (0-3) Basophils (%) (Auto) 1 % (0-3) Neutrophils # (Auto) 3.6 x10^3uL (1.8-7.7) Lymphocytes # (Auto) 1.4 x10^3/uL (1.0-4.8) Monocytes # (Auto) 0.4 x10^3/uL (0.0-1.1) Eosinophils # (Auto) 0.1 x10^3/uL (0.0-0.7) Basophils # (Auto) 0.0 x10^3/uL (0.0-0.2) Sodium Level 137 mmol/L (136-145) Potassium Level 3.7 mmol/L (3.5-5.1) Chloride Level 103 mmol/L (98-107) Carbon Dioxide Level 27 mmol/L (21-32) Anion Gap 7 (6-14) Blood Urea Nitrogen 11 mg/dL (8-26) Creatinine 0.9 mg/dL (0.7-1.3) Estimated GFR (Cockcroft-Gault) 102.2 Glucose Level 90 mg/dL (70-99) Calcium Level 8.3 mg/dL (8.5-10.1) Medications Current Medications Acetaminophen (Tylenol) 650 mg PRN Q6HRS PRN PO HEADACHE Last administered on 12/23/16 09:54; Start 12/22/16 at 20:45 Sodium Chloride 1,000 ml @ 75 mls/hr [id number] IV Last administered on 05:46; Start 12/22/16 at 12:30 Vitals/I & O Vital Sign - Last 24 Hours 12/22/16 12/22/16 12/22/16 12/22/16 15:00 19:59 20:00 20:46 Temp 100.0 99.5 100.0 99.5 Pulse 93 94 Resp 16 18 B/P (MAP) 131/75 (93) 130/79 (96) Pulse Ox 99 93 O2 Delivery Room Air Room Air Room Air Room Air 12/22/16 12/23/16 12/23/16 12/23/16 23:19 03:00 07:00 11:00 Temp 99.6 100.2 98.5 98.8 99.6 100.2 98.5 98.8 Pulse 84 76 85 86 Resp 18 20 18 18 B/P (MAP) 116/81 (93) 127/82 (97) 132/82 (99) 132/83 (99) Pulse Ox 94 98 95 95 O2 Delivery Room Air Room Air Room Air Room Air GEOFF WEBER MD Dec 23, 2016 12:16
[2016-12-23 15:00] VITALS: BP 135/83
[2016-12-23] MEDS ORDERED: ACETAMINOPHEN 325 MG TABLET. PO STA (15:36)
[2016-12-23 19:00] VITALS: BP 151/88
[2016-12-23] MEDS: FAMOTIDINE 20 MG TABLET. PO SCH (22:11)
[2016-12-23] MEDS: HYDROcodone/APAP 7.5/325MG 1 TAB TABLET PO PRN (22:11)
[2016-12-23] MEDS: ZOLPIDEM 5 MG TABLET. PO PRN (22:14)
[2016-12-23 23:00] VITALS: BP 133/83
[2016-12-24] VITALS (7 sets, daily range): BP systolic 123–149; BP diastolic 71–87
[2016-12-24] MEDS: HEPARIN PF for SUB-Q USE 5,000 UNIT/0.5 ML VIAL. SQ SCH ×3 (00:53→23:50)
[2016-12-24 06:34] LABS: BASO % 1 % (0-3); EOS % 4 % (0-3); HEMOGLOBIN 12.7 g/dL (13.0-17.5); LYMPH # 1.3 x10^3/uL (1.0-4.8); LYMPH % 24 % (24-48); MEAN CORPUSCULAR HEMOGLOBIN 30 pg (25-35); MEAN CORPUSCULAR HGB CONC 34 g/dL (31-37); MEAN CORPUSCULAR VOLUME 88 fL (79-100); MONO % 8 % (0-9); NEUT % 64 % (31-73); PLATELET COUNT 176 x10^3/uL (140-400); RED BLOOD COUNT 4.32 x10^6/uL (4.30-5.70); RED CELL DISTRIBUTION WIDTH 13.6 % (11.5-14.5); WHITE BLOOD COUNT 5.5 x10^3/uL (4.0-11.0)
[2016-12-24 06:51] LABS: CREATININE 0.9 mg/dL (0.7-1.3); GFR 102.2; POTASSIUM 3.5 mmol/L (3.5-5.1)
[2016-12-24] MEDS: FAMOTIDINE 20 MG TABLET. PO SCH ×2 (09:32→21:29)
--- NOTE | 2016-12-24 10:05 | PDOC ---
PROGRESS NOTES Subjective Subjective passing gas Objective Objective Vital Signs Date Time Temp Pulse Resp B/P (MAP) Pulse Ox O2 Delivery O2 Flow Rate FiO2 12/24/16 07:00 98.6 81 18 129/81 (97) 94 Room Air 98.6 12/23/16 23:00 2.0 Physical Exam Abdomen: Soft, Other (incision clean) Heart: Normal S1, Normal S2 General: Alert HEENT: Atraumatic Lungs: Clear to auscultation MUSCULOSKELETAL: No deformity Neuro: Normal speech Psych/Mental Status: Mental status NL Skin: No breakdown Assessment Assessment 1. Mesenteric mass, s/p resection, pod#2 2. History of adenocarcinoma of the colon, had a partial colon resection last year. PLAN: ambulate ,started on clear liquid idet ambien for sleep. 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 At this time, the patient was admitted to the hospital, had surgery, removed the mass in the mesentery and Oncology was consulted and the patient is recovering from surgery. deep venous thrombosis prevention with sequential compression devices and REGINA hose and see how the patient's condition improves. Problems: Comment Review of Relevant I have reviewed the following items sarath (where applicable) has been applied. Labs Laboratory Tests Test 12/24/16 06:00 White Blood Count 5.5 x10^3/uL (4.0-11.0) Red Blood Count 4.32 x10^6/uL (4.30-5.70) Hemoglobin 12.7 g/dL (13.0-17.5) Hematocrit 38.0 % (39.0-53.0) Mean Corpuscular Volume 88 fL (79-100) Mean Corpuscular Hemoglobin 30 pg (25-35) Mean Corpuscular Hemoglobin Concent 34 g/dL (31-37) Red Cell Distribution Width 13.6 % (11.5-14.5) Platelet Count 176 x10^3/uL (140-400) Neutrophils (%) (Auto) 64 % (31-73) Lymphocytes (%) (Auto) 24 % (24-48) Monocytes (%) (Auto) 8 % (0-9) Eosinophils (%) (Auto) 4 % (0-3) Basophils (%) (Auto) 1 % (0-3) Neutrophils # (Auto) 3.5 x10^3uL (1.8-7.7) Lymphocytes # (Auto) 1.3 x10^3/uL (1.0-4.8) Monocytes # (Auto) 0.4 x10^3/uL (0.0-1.1) Eosinophils # (Auto) 0.2 x10^3/uL (0.0-0.7) Basophils # (Auto) 0.0 x10^3/uL (0.0-0.2) Sodium Level 142 mmol/L (136-145) Potassium Level 3.5 mmol/L (3.5-5.1) Chloride Level 105 mmol/L (98-107) Carbon Dioxide Level 28 mmol/L (21-32) Anion Gap 9 (6-14) Blood Urea Nitrogen 10 mg/dL (8-26) Creatinine 0.9 mg/dL (0.7-1.3) Estimated GFR (Cockcroft-Gault) 102.2 Glucose Level 89 mg/dL (70-99) Calcium Level 9.0 mg/dL (8.5-10.1) Medications Current Medications Acetaminophen (Tylenol) 650 mg 1X STAT PO Last administered on 12/23/16 15:58 ; Start 12/23/16 at 15:36; Stop 12/23/16 at 15:39; Status DC Acetaminophen/ Hydrocodone Bitart (Lortab 7.5/325) 1 tab PRN Q4HRS PRN PO PAIN Last administered on 12/23/16 22:11; Start 12/23/16 at 22:00 Famotidine (Pepcid) 20 mg BID PO Last administered on 12/24/16 09:32; Start 12/23/16 at 22:00 Zolpidem Tartrate (Ambien) 5 mg PRN QHS PRN PO INSOMNIA Last administered on 22:14; Start 12/23/16 at 12:15 Vitals/I & O Vital Sign - Last 24 Hours 12/23/16 12/23/16 12/23/16 12/23/16 11:00 12:30 15:00 19:00 Temp 98.8 99.5 101.3 97.5 98.8 99.5 101.3 97.5 Pulse 86 79 78 Resp 18 16 21 B/P (MAP) 132/83 (99) 135/83 (100) 151/88 (109) Pulse Ox 95 96 98 O2 Delivery Room Air Room Air Nasal Cannula O2 Flow Rate 2.0 12/23/16 12/23/16 12/23/16 12/23/16 20:00 22:11 23:00 23:11 Temp 97.5 97.5 Pulse 77 Resp 16 17 16 B/P (MAP) 133/83 (100) Pulse Ox 98 96 98 O2 Delivery Room Air Room Air Nasal Cannula Room Air O2 Flow Rate 2.0 12/24/16 12/24/16 03:00 07:00 Temp 98.6 98.6 98.6 98.6 Pulse 82 81 Resp 18 18 B/P (MAP) 125/72 (89) 129/81 (97) Pulse Ox 97 94 O2 Delivery Room Air Room Air GEOFF WEBER MD Dec 24, 2016 10:05
[2016-12-24] MEDS: HYDROcodone/APAP 7.5/325MG 1 TAB TABLET PO PRN ×2 (10:31→21:29)
--- NOTE | 2016-12-24 11:45 | PDOC ---
SURGICAL PROGRESS NOTE Subjective POD#4 Pt is doing well. WBC is within normal limits and he does not have a fever. We will advance his diet to full fluids and regular as tolerated. He has flatus and a bowel movement. Plan to discharge tomorrow and continue follow up as chemorx will foloow per dr. Haddad..oncologistt. Abd soft with he normal incisional pain ad he ambulates and has done very well without IV. Vital Signs Vital Signs Date Time Temp Pulse Resp B/P (MAP) Pulse Ox O2 Delivery O2 Flow Rate FiO2 12/24/16 11:00 98.8 83 16 123/77 (92) 95 Room Air 98.8 12/23/16 23:00 2.0 Labs Laboratory Tests Test 12/23/16 05:12 12/24/16 06:00 White Blood Count 5.4 x10^3/uL (4.0-11.0) 5.5 x10^3/uL (4.0-11.0) Red Blood Count 4.36 x10^6/uL (4.30-5.70) 4.32 x10^6/uL (4.30-5.70) Hemoglobin 12.8 g/dL (13.0-17.5) 12.7 g/dL (13.0-17.5) Hematocrit 38.6 % (39.0-53.0) 38.0 % (39.0-53.0) Mean Corpuscular Volume 89 fL (79-100) 88 fL (79-100) Mean Corpuscular Hemoglobin 29 pg (25-35) 30 pg (25-35) Mean Corpuscular Hemoglobin Concent 33 g/dL (31-37) 34 g/dL (31-37) Red Cell Distribution Width 13.6 % (11.5-14.5) 13.6 % (11.5-14.5) Platelet Count 142 x10^3/uL (140-400) 176 x10^3/uL (140-400) Neutrophils (%) (Auto) 65 % (31-73) 64 % (31-73) Lymphocytes (%) (Auto) 25 % (24-48) 24 % (24-48) Monocytes (%) (Auto) 7 % (0-9) 8 % (0-9) Eosinophils (%) (Auto) 3 % (0-3) 4 % (0-3) Basophils (%) (Auto) 1 % (0-3) 1 % (0-3) Neutrophils # (Auto) 3.6 x10^3uL (1.8-7.7) 3.5 x10^3uL (1.8-7.7) Lymphocytes # (Auto) 1.4 x10^3/uL (1.0-4.8) 1.3 x10^3/uL (1.0-4.8) Monocytes # (Auto) 0.4 x10^3/uL (0.0-1.1) 0.4 x10^3/uL (0.0-1.1) Eosinophils # (Auto) 0.1 x10^3/uL (0.0-0.7) 0.2 x10^3/uL (0.0-0.7) Basophils # (Auto) 0.0 x10^3/uL (0.0-0.2) 0.0 x10^3/uL (0.0-0.2) Sodium Level 137 mmol/L (136-145) 142 mmol/L (136-145) Potassium Level 3.7 mmol/L (3.5-5.1) 3.5 mmol/L (3.5-5.1) Chloride Level 103 mmol/L (98-107) 105 mmol/L (98-107) Carbon Dioxide Level 27 mmol/L (21-32) 28 mmol/L (21-32) Anion Gap 7 (6-14) 9 (6-14) Blood Urea Nitrogen 11 mg/dL (8-26) 10 mg/dL (8-26) Creatinine 0.9 mg/dL (0.7-1.3) 0.9 mg/dL (0.7-1.3) Estimated GFR (Cockcroft-Gault) 102.2 102.2 Glucose Level 90 mg/dL (70-99) 89 mg/dL (70-99) Calcium Level 8.3 mg/dL (8.5-10.1) 9.0 mg/dL (8.5-10.1) Laboratory Tests Test 12/24/16 06:00 White Blood Count 5.5 x10^3/uL (4.0-11.0) Red Blood Count 4.32 x10^6/uL (4.30-5.70) Hemoglobin 12.7 g/dL (13.0-17.5) Hematocrit 38.0 % (39.0-53.0) Mean Corpuscular Volume 88 fL (79-100) Mean Corpuscular Hemoglobin 30 pg (25-35) Mean Corpuscular Hemoglobin Concent 34 g/dL (31-37) Red Cell Distribution Width 13.6 % (11.5-14.5) Platelet Count 176 x10^3/uL (140-400) Neutrophils (%) (Auto) 64 % (31-73) Lymphocytes (%) (Auto) 24 % (24-48) Monocytes (%) (Auto) 8 % (0-9) Eosinophils (%) (Auto) 4 % (0-3) Basophils (%) (Auto) 1 % (0-3) Neutrophils # (Auto) 3.5 x10^3uL (1.8-7.7) Lymphocytes # (Auto) 1.3 x10^3/uL (1.0-4.8) Monocytes # (Auto) 0.4 x10^3/uL (0.0-1.1) Eosinophils # (Auto) 0.2 x10^3/uL (0.0-0.7) Basophils # (Auto) 0.0 x10^3/uL (0.0-0.2) Sodium Level 142 mmol/L (136-145) Potassium Level 3.5 mmol/L (3.5-5.1) Chloride Level 105 mmol/L (98-107) Carbon Dioxide Level 28 mmol/L (21-32) Anion Gap 9 (6-14) Blood Urea Nitrogen 10 mg/dL (8-26) Creatinine 0.9 mg/dL (0.7-1.3) Estimated GFR (Cockcroft-Gault) 102.2 Glucose Level 89 mg/dL (70-99) Calcium Level 9.0 mg/dL (8.5-10.1) TRICIA LOPEZ MD Dec 24, 2016 11:45
--- NOTE | 2016-12-24 13:13 | PATHOLOGY ---
PATHOLOGY REPORT * * * * * * * * FINAL DIAGNOSIS: Abdominal mass, excisional biopsy: - METASTATIC ADENOCARCINOMA, MODERATELY-DIFFERENTIATED. See comment. COMMENT: Sections of the abdominal mass excisional biopsy reveal a metastatic moderately-differentiated adenocarcinoma. The tumor is comprised of malignant glands, some of which have a gland within gland, cribriform arrangement, and show diirty intraluminal necrosis. The morphology of the neoplasm is consistent with colorectal origin, and is similar to that seen in the previous transverse colon primary resection ([id number]). The case is also examined by Dr. Jerome Tom, who concurs with the diagnosis. (JPM:mml; 12/24/2016) REPORT ELECTRONICALLY SIGNED BY: Matthew Mendez M.D. DATE/TIME: 12/24/2016 13:12 * * * * * * * * GROSS PATHOLOGY: The specimen is received fresh for intraoperative consultation and is designated "abdominal mass". This consists of a fairly well circumscribed nodule of yellow and red brown soft rubbery tissue measuring up to 2.8 x 2.3 x 1.5 cm. The specimen is serially sectioned. Sections reveals a pinkish-lloyd to focally yellowish soft necrotic appearing cut surface. 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 The tissue remaining from frozen section is submitted for permanent sections as A1. INTRAOPERATIVE CONSULTATION (Fransico Mendez M.D.) Intraoperative consultation with frozen section: Abdominal mass, excisional biopsy: - Metastatic adenocarcinoma. The results are reported to Dr. Parks in the operating room. Additional sections are submitted as A2 and A3. (JPM:rl; 12/20/2016) Testing performed by [facility] at [address] [address] INITIAL CPT CODE(S): A; 44764, 91536 Professional services performed by [facility] at [address] [address] Technical services performed by [facility] at [address] [place] [address], [address], [place] [address]. SPECIMEN(S) RECEIVED: A.Abdominal mass CLINICAL HISTORY: None Provided PATIENT: ENRIQUE MCBRIDE /AGE: 203/31/1950 (Age: 66) PATIENT #: [id number] ALT CASE #: SPECIMEN COLLECTION DATE: 12/20/2016 SPECIMEN RECEIVED DATE: 12/20/2016 [facility] - [id number] [place] [address] - PHONE: [phone] * * * END OF REPORT * * *
--- NOTE | 2016-12-24 16:53 | PDOC ---
PROGRESS NOTES Subjective Subjective HPI - Recurrent colon cancer. He was diagnosed with colon cancer in October of 2015 and he underwent a right hemicolectomy on 11/29/2015. It was staged as a T3 N0 M0, stage IIA colon cancer. ROS - abd pain better Objective Objective Vital Signs Date Time Temp Pulse Resp B/P (MAP) Pulse Ox O2 Delivery O2 Flow Rate FiO2 12/24/16 15:00 98.2 71 16 124/71 (88) 98 Room Air 98.2 12/24/16 07:40 2.0 Physical Exam Heart: Normal S1, Normal S2 General: Alert, Oriented X3, No acute distress Neuro: Normal speech Psych/Mental Status: Mental status NL Skin: No rashes Assessment Assessment IMPRESSION AND PLAN: 1. Recurrent colon cancer. He was diagnosed with colon cancer in October of 2015 and he underwent a right hemicolectomy on 11/29/2015. It was staged as a T3 N0 M0, stage IIA colon cancer. Ten lymph nodes were examined and they were not involved. Adjuvant chemotherapy was recommended but the patient declined. Surveillance CT scan on 11/20/2016 revealed a 2.3 cm soft tissue mass in the central mesentery and a PET scan was positive on 12/06/2016 for a solitary metastatic implant. Hence, exploratory laparotomy and resection was recommended and he underwent a procedure on 12/20/2016. Pathology confirmed metastatic adenocarcinoma. I would recommend adjuvant chemotherapy. 2. Abdominal pain postoperative. Continue pain management per Dr. Parks. Comment Review of Relevant I have reviewed the following items sarath (where applicable) has been applied. Labs Laboratory Tests Test 12/23/16 05:12 12/24/16 06:00 White Blood Count 5.4 x10^3/uL (4.0-11.0) 5.5 x10^3/uL (4.0-11.0) Red Blood Count 4.36 x10^6/uL (4.30-5.70) 4.32 x10^6/uL (4.30-5.70) Hemoglobin 12.8 g/dL (13.0-17.5) 12.7 g/dL (13.0-17.5) Hematocrit 38.6 % (39.0-53.0) 38.0 % (39.0-53.0) Mean Corpuscular Volume 89 fL (79-100) 88 fL (79-100) Mean Corpuscular Hemoglobin 29 pg (25-35) 30 pg (25-35) Mean Corpuscular Hemoglobin Concent 33 g/dL (31-37) 34 g/dL (31-37) Red Cell Distribution Width 13.6 % (11.5-14.5) 13.6 % (11.5-14.5) Platelet Count 142 x10^3/uL (140-400) 176 x10^3/uL (140-400) Neutrophils (%) (Auto) 65 % (31-73) 64 % (31-73) Lymphocytes (%) (Auto) 25 % (24-48) 24 % (24-48) Monocytes (%) (Auto) 7 % (0-9) 8 % (0-9) Eosinophils (%) (Auto) 3 % (0-3) 4 % (0-3) Basophils (%) (Auto) 1 % (0-3) 1 % (0-3) Neutrophils # (Auto) 3.6 x10^3uL (1.8-7.7) 3.5 x10^3uL (1.8-7.7) Lymphocytes # (Auto) 1.4 x10^3/uL (1.0-4.8) 1.3 x10^3/uL (1.0-4.8) Monocytes # (Auto) 0.4 x10^3/uL (0.0-1.1) 0.4 x10^3/uL (0.0-1.1) Eosinophils # (Auto) 0.1 x10^3/uL (0.0-0.7) 0.2 x10^3/uL (0.0-0.7) Basophils # (Auto) 0.0 x10^3/uL (0.0-0.2) 0.0 x10^3/uL (0.0-0.2) Sodium Level 137 mmol/L (136-145) 142 mmol/L (136-145) Potassium Level 3.7 mmol/L (3.5-5.1) 3.5 mmol/L (3.5-5.1) Chloride Level 103 mmol/L (98-107) 105 mmol/L (98-107) Carbon Dioxide Level 27 mmol/L (21-32) 28 mmol/L (21-32) Anion Gap 7 (6-14) 9 (6-14) Blood Urea Nitrogen 11 mg/dL (8-26) 10 mg/dL (8-26) Creatinine 0.9 mg/dL (0.7-1.3) 0.9 mg/dL (0.7-1.3) Estimated GFR (Cockcroft-Gault) 102.2 102.2 Glucose Level 90 mg/dL (70-99) 89 mg/dL (70-99) Calcium Level 8.3 mg/dL (8.5-10.1) 9.0 mg/dL (8.5-10.1) Laboratory Tests Test 12/24/16 06:00 White Blood Count 5.5 x10^3/uL (4.0-11.0) Red Blood Count 4.32 x10^6/uL (4.30-5.70) Hemoglobin 12.7 g/dL (13.0-17.5) Hematocrit 38.0 % (39.0-53.0) Mean Corpuscular Volume 88 fL (79-100) Mean Corpuscular Hemoglobin 30 pg (25-35) Mean Corpuscular Hemoglobin Concent 34 g/dL (31-37) Red Cell Distribution Width 13.6 % (11.5-14.5) Platelet Count 176 x10^3/uL (140-400) Neutrophils (%) (Auto) 64 % (31-73) Lymphocytes (%) (Auto) 24 % (24-48) Monocytes (%) (Auto) 8 % (0-9) Eosinophils (%) (Auto) 4 % (0-3) Basophils (%) (Auto) 1 % (0-3) Neutrophils # (Auto) 3.5 x10^3uL (1.8-7.7) Lymphocytes # (Auto) 1.3 x10^3/uL (1.0-4.8) Monocytes # (Auto) 0.4 x10^3/uL (0.0-1.1) Eosinophils # (Auto) 0.2 x10^3/uL (0.0-0.7) Basophils # (Auto) 0.0 x10^3/uL (0.0-0.2) Sodium Level 142 mmol/L (136-145) Potassium Level 3.5 mmol/L (3.5-5.1) Chloride Level 105 mmol/L (98-107) Carbon Dioxide Level 28 mmol/L (21-32) Anion Gap 9 (6-14) Blood Urea Nitrogen 10 mg/dL (8-26) Creatinine 0.9 mg/dL (0.7-1.3) Estimated GFR (Cockcroft-Gault) 102.2 Glucose Level 89 mg/dL (70-99) Calcium Level 9.0 mg/dL (8.5-10.1) Medications Current Medications Midazolam HCl (Versed) 2 mg PRN 1X PRN IV PRIOR TO PROCEDURE; Start 12/20/16 at 11:15; Stop 12/21/16 at 11:14; Status DC Fentanyl Citrate (Fentanyl 2ml Vial) 25 mcg PRN Q5MIN PRN IV X 2 DOSES FOR PAIN ; Start 12/20/16 at 11:15; Stop 12/21/16 at 11:14; Status DC Fentanyl Citrate (Fentanyl 2ml Vial) 50 mcg PRN Q5MIN PRN IV X 2 DOSES FOR PAIN ; Start 12/20/16 at 11:15; Stop 12/21/16 at 11:14; Status DC Ringer's Solution 1,000 ml @ 125 mls/hr Q8H IV Last administered on 12/20/16t 10:40; Start 12/20/16 at 11:13; Stop 12/20/16 at 23:12; Status DC Lidocaine HCl (Xylocaine-Mpf 1% Vial) 2 ml 1X PRN PRN ID IV START; Start at 11:15; Stop 12/21/16 at 11:14; Status DC Ringer's Solution 1,000 ml @ 125 mls/hr Q8H IV ; Start 12/20/16 at 11:15; Stop 12/20/16 at 23:14; Status DC Propofol 20 ml @ As Directed STK-MED ONCE IV ; Start 12/20/16 at 12:11; Stop at 12:12; Status DC Dexamethasone Sodium Phosphate (Decadron) 20 mg STK-MED ONCE .ROUTE ; Start 12/20/16 at 12:11; Stop 12/20/16 at 12:12; Status DC Famotidine (Pepcid) 20 mg STK-MED ONCE .ROUTE ; Start 12/20/16 at 12:11; Stop 12/20/16 at 12:12; Status DC Lidocaine HCl (Lidocaine Pf 2% Vial) 5 ml STK-MED ONCE .ROUTE ; Start 12/20/16 at 12:11; Stop 12/20/16 at 12:12; Status DC Ondansetron HCl (Zofran) 4 mg STK-MED ONCE .ROUTE ; Start 12/20/16 at 12:11; Stop 12/20/16 at 12:12; Status DC Rocuronium [place] (Zemuron) 50 mg STK-MED ONCE .ROUTE ; Start 12/20/16 at 12:13 ; Stop 12/20/16 at 12:14; Status DC Fentanyl Citrate (Fentanyl 2ml Vial) 100 mcg STK-MED ONCE .ROUTE ; Start at 12:13; Stop 12/20/16 at 12:14; Status DC Midazolam HCl (Versed) 2 mg STK-MED ONCE .ROUTE ; Start 12/20/16 at 12:13; Stop 12/20/16 at 12:14; Status DC Lidocaine HCl (Xylocaine 2% Topical 5gm Tube) 5 latha STK-MED ONCE TP ; Start 12/20/16 at 12:15; Stop 12/20/16 at 12:16; Status DC Bupivacaine HCl/ Epinephrine Bitart (Marcaine-Epi 0.25%-[id number]) 50 ml STK-MED ONCE .ROUTE ; Start 12/20/16 at 11:48; Stop 12/20/16 at 12:48; Status DC Sevoflurane (Ultane) 90 ml STK-MED ONCE IH ; Start 12/20/16 at 12:59; Stop 12/20 at 13:00; Status DC Sodium Chloride (Sodium Chloride) 50 ml STK-MED ONCE IJ ; Start 12/20/16 at 13: 09; Stop 12/20/16 at 13:10; Status DC Morphine Sulfate 10 mg STK-MED ONCE .ROUTE ; Start 12/20/16 at 13:10; Stop 12/20 at 13:11; Status DC Bupivacaine HCl/ Epinephrine Bitart (Marcaine-Epi 0.5%-[id number]) 50 ml STK-MED ONCE .ROUTE Last administered on 12/20/16t 15:07; Start 12/20/16 at 14:04; Stop 12/20/16 at 15:04; Status DC Neostigmine Methylsulfate (Bloxiverz) 10 mg STK-MED ONCE .ROUTE ; Start at 15:15; Stop 12/20/16 at 15:16; Status DC Glycopyrrolate (Robinul) 1 mg STK-MED ONCE .ROUTE ; Start 12/20/16 at 15:15; Stop 12/20/16 at 15:16; Status DC Cefazolin Sodium 1 gm/Dextrose 50 ml @ 100 mls/hr Q8H IV ; Start 12/20/16 at 16 :45; Stop 12/20/16 at 19:08; Status DC Metronidazole 100 ml @ 100 mls/hr Q12HR IV Last administered on 12/21/16 10: 00; Start 12/20/16 at 21:00; Stop 12/21/16 at 20:59; Status DC Famotidine (Pepcid) 20 mg BID IVP Last administered on 12/23/16 09:09; Start 12/20/16 at 21:00; Stop 12/23/16 at 21:52; Status DC Sodium Chloride (Normal Saline Flush) 3 ml QSHIFT PRN IV AFTER MEDS AND BLOOD DRAWS; Start 12/20/16 at 16:45 Potassium Chloride/Sodium Chloride 1,000 ml @ 125 mls/hr Q8H IV Last administered on 12/21/16 16:26; Start 12/20/16 at 16:33; Stop 12/21/16 at 17:49 ; Status DC Hydromorphone HCl 30 ml @ 0 mls/hr CONT PRN PRN IV PROTOCOL Last administered on 12/20/16 17:36; Start 12/20/16 at 16:45; Stop 12/23/16 at 21:52; Status DC Ondansetron HCl (Zofran) 4 mg PRN Q6HRS PRN IV NAUESA, 1ST CHOICE Last administered on 12/21/16 15:25; Start 12/20/16 at 16:45 Ketorolac Tromethamine (Toradol) 15 mg PRN Q6HRS PRN IV PAIN Last administered on 12/21/16 21:11; Start 12/20/16 at 16:45; Stop 12/25/16 at 16:44 Prochlorperazine Edisylate (Compazine) 10 mg STK-MED ONCE .ROUTE ; Start at 17:23; Stop 12/20/16 at 17:24; Status DC Ondansetron HCl (Zofran) 4 mg PRN Q6HRS PRN IV NAUSEA/VOMITING; Start 12/20/16 at 17:30; Stop 12/20/16 at 21:00; Status DC Fentanyl Citrate (Fentanyl 2ml Vial) 25 mcg PRN Q5MIN PRN IV MILD PAIN; Start 12/20/16 at 17:30; Stop 12/21/16 at 17:29; Status UNV Fentanyl Citrate (Fentanyl 2ml Vial) 50 mcg PRN Q5MIN PRN IV MODERATE PAIN; Start 12/20/16 at 17:30; Stop 12/21/16 at 17:29; Status UNV Morphine Sulfate 1 mg PRN Q10MIN PRN IV SEVERE PAIN; Start 12/20/16 at 17:30; Stop 12/20/16 at 21:00; Status DC Ringer's Solution 1,000 ml @ 30 mls/hr Q24H IV ; Start 12/20/16 at 17:24; Stop 12/21/16 at 05:23; Status DC Lidocaine HCl (Xylocaine-Mpf 1% Vial) 2 ml 1X PRN PRN ID IV START; Start at 17:30; Stop 12/20/16 at 21:00; Status DC Hydromorphone HCl (Dilaudid) 0.5 mg PRN Q10MIN PRN IV SEV PAIN, Second choice; Start 12/20/16 at 17:30; Stop 12/20/16 at 18:00; Status DC Prochlorperazine Edisylate (Compazine) 5 mg PACU PRN PRN IV NAUSEA, MRX1 Last administered on 12/20/16t 17:30; Start 12/20/16 at 17:30; Stop 12/20/16 at 21:00 ; Status DC Cefoxitin Sodium 50 ml @ 100 mls/hr 1X PERIOP PRN IV SEE COMMENTS; Start 12/20 at 18:30; Stop 12/20/16 at 19:09; Status DC Cefazolin Sodium (Ancef) 1 gm Q8H IVP Last administered on 12/21/16 14:40; Start 12/20/16 at 21:00; Stop 12/21/16 at 13:01; Status DC Saliva Substitute (Biotene Moisturizing Mouth) 2 spray PRN Q15MIN PRN PO DRY MOUTH Last administered on 12/21/16 09:55; Start 12/21/16 at 06:45 Cefazolin Sodium (Ancef 1gm Ivpb For Omni) 1 gm STK-MED ONCE IV ; Start at 10:00; Stop 12/21/16 at 13:36; Status DC Metronidazole (FLAGYL 500Mmg PREMIX) 500 mg STK-MED ONCE IV ; Start 12/20/16 at 10:00; Stop 12/21/16 at 13:42; Status DC Sodium Chloride 1,000 ml @ 125 mls/hr Q8HRS IV Last administered on 12/22/16 10:59; Start 12/21/16 at 22:00; Stop 12/22/16 at 17:28; Status DC Heparin Sodium (Porcine) (Heparin Sq) 5,000 unit Q12H SQ Last administered on 12/24/16 12:32; Start 12/22/16 at 12:00 Sodium Chloride 1,000 ml @ 75 mls/hr [id number] IV Last administered on 16:03; Start 12/22/16 at 12:30; Stop 12/23/16 at 21:52; Status DC Acetaminophen (Tylenol) 650 mg PRN Q6HRS PRN PO HEADACHE Last administered on 12/23/16 09:54; Start 12/22/16 at 20:45 Zolpidem Tartrate (Ambien) 5 mg PRN QHS PRN PO INSOMNIA Last administered on 22:14; Start 12/23/16 at 12:15 Acetaminophen (Tylenol) 650 mg 1X STAT PO Last administered on 12/23/16 15:58 ; Start 12/23/16 at 15:36; Stop 12/23/16 at 15:39; Status DC Famotidine (Pepcid) 20 mg BID PO Last administered on 12/24/16 09:32; Start 12/23/16 at 22:00 Acetaminophen/ Hydrocodone Bitart (Lortab 7.5/325) 1 tab PRN Q4HRS PRN PO PAIN Last administered on 12/24/16t 10:31; Start 12/23/16 at 22:00 Active Scripts Active Reported Neomycin Sulfate 500 Mg Tablet 1,000 Mg PO EVERY 6 HRS Aspirin 81 Mg Tab.chew 81 Mg PO DAILY Vitals/I & O Vital Sign - Last 24 Hours 12/23/16 12/23/16 12/23/16 12/23/16 19:00 20:00 22:11 23:00 Temp 97.5 97.5 97.5 97.5 Pulse 78 77 Resp 21 16 17 B/P (MAP) 151/88 (109) 133/83 (100) Pulse Ox 98 98 96 O2 Delivery Nasal Cannula Room Air Room Air Nasal Cannula O2 Flow Rate 2.0 2.0 12/23/16 12/24/16 12/24/16 12/24/16 23:11 03:00 07:00 07:40 Temp 98.6 98.6 98.6 98.6 Pulse 82 81 Resp 16 18 18 B/P (MAP) 125/72 (89) 129/81 (97) Pulse Ox 98 97 94 O2 Delivery Room Air Room Air Room Air O2 Flow Rate 2.0 12/24/16 12/24/16 12/24/16 12/24/16 09:00 10:31 11:00 11:35 Temp 98.8 98.8 98.8 98.8 Pulse 83 83 Resp 16 16 B/P (MAP) 123/77 (92) 123/77 (92) Pulse Ox 95 95 O2 Delivery Room Air Room Air Room Air Room Air 12/24/16 15:00 Temp 98.2 98.2 Pulse 71 Resp 16 B/P (MAP) 124/71 (88) Pulse Ox 98 O2 Delivery Room Air DAPHNEY NAIDU MD Dec 24, 2016 16:53
[2016-12-24] MEDS: ZOLPIDEM 5 MG TABLET. PO PRN (21:30)
[2016-12-25 02:34] VITALS: BP 113/73
[2016-12-25 05:29] LABS: BASO % 1 % (0-3); EOS % 3 % (0-3); HEMATOCRIT 37.8 % (39.0-53.0); HEMOGLOBIN 12.8 g/dL (13.0-17.5); LYMPH # 1.4 x10^3/uL (1.0-4.8); LYMPH % 28 % (24-48); MEAN CORPUSCULAR HEMOGLOBIN 30 pg (25-35); MEAN CORPUSCULAR HGB CONC 34 g/dL (31-37); MEAN CORPUSCULAR VOLUME 87 fL (79-100); MONO % 9 % (0-9); NEUT % 60 % (31-73); PLATELET COUNT 177 x10^3/uL (140-400); RED BLOOD COUNT 4.32 x10^6/uL (4.30-5.70); RED CELL DISTRIBUTION WIDTH 13.4 % (11.5-14.5); WHITE BLOOD COUNT 5.2 x10^3/uL (4.0-11.0)
[2016-12-25 05:44] LABS: ALBUMIN 2.7 g/dL (3.4-5.0); ALBUMIN/GLOBULIN RATIO 0.7 (1.0-1.7); CALCIUM 9.2 mg/dL (8.5-10.1); CREATININE 0.9 mg/dL (0.7-1.3); GFR 102.2; POTASSIUM 3.5 mmol/L (3.5-5.1); TOTAL BILIRUBIN 0.5 mg/dL (0.2-1.0); TOTAL PROTEIN 6.5 g/dL (6.4-8.2)
[2016-12-25 07:00] VITALS: BP 119/70
[2016-12-25] MEDS: FAMOTIDINE 20 MG TABLET. PO SCH ×2 (09:13→20:55)
--- NOTE | 2016-12-25 09:46 | PDOC ---
PROGRESS NOTES Subjective Subjective feels ok Objective Objective Vital Signs Date Time Temp Pulse Resp B/P (MAP) Pulse Ox O2 Delivery O2 Flow Rate FiO2 12/25/16 07:00 98.6 73 18 119/70 (86) 96 Room Air 98.6 12/24/16 07:40 2.0 Physical Exam Abdomen: Soft, Other (incision clean) Heart: Normal S1, Normal S2 General: Alert, Oriented X3, No acute distress HEENT: Atraumatic Lungs: Clear to auscultation MUSCULOSKELETAL: No deformity Neuro: Normal speech Psych/Mental Status: Mental status NL Skin: No rashes Assessment Assessment 1. Mesenteric mass, s/p resection, pod#3, adeno ca mets locally 2. History of adenocarcinoma of the colon, had a partial colon resection last year. PLAN: tolerating diet ambien for sleep. nocturnal desaturation study tonight labs ok spoke with oncology Problems: Comment Review of Relevant I have reviewed the following items sarath (where applicable) has been applied. Labs Laboratory Tests Test 12/25/16 04:50 White Blood Count 5.2 x10^3/uL (4.0-11.0) Red Blood Count 4.32 x10^6/uL (4.30-5.70) Hemoglobin 12.8 g/dL (13.0-17.5) Hematocrit 37.8 % (39.0-53.0) Mean Corpuscular Volume 87 fL (79-100) Mean Corpuscular Hemoglobin 30 pg (25-35) Mean Corpuscular Hemoglobin Concent 34 g/dL (31-37) Red Cell Distribution Width 13.4 % (11.5-14.5) Platelet Count 177 x10^3/uL (140-400) Neutrophils (%) (Auto) 60 % (31-73) Lymphocytes (%) (Auto) 28 % (24-48) Monocytes (%) (Auto) 9 % (0-9) Eosinophils (%) (Auto) 3 % (0-3) Basophils (%) (Auto) 1 % (0-3) Neutrophils # (Auto) 3.1 x10^3uL (1.8-7.7) Lymphocytes # (Auto) 1.4 x10^3/uL (1.0-4.8) Monocytes # (Auto) 0.5 x10^3/uL (0.0-1.1) Eosinophils # (Auto) 0.2 x10^3/uL (0.0-0.7) Basophils # (Auto) 0.0 x10^3/uL (0.0-0.2) Sodium Level 142 mmol/L (136-145) Potassium Level 3.5 mmol/L (3.5-5.1) Chloride Level 104 mmol/L (98-107) Carbon Dioxide Level 29 mmol/L (21-32) Anion Gap 9 (6-14) Blood Urea Nitrogen 11 mg/dL (8-26) Creatinine 0.9 mg/dL (0.7-1.3) Estimated GFR (Cockcroft-Gault) 102.2 BUN/Creatinine Ratio 12 (6-20) Glucose Level 89 mg/dL (70-99) Calcium Level 9.2 mg/dL (8.5-10.1) Total Bilirubin 0.5 mg/dL (0.2-1.0) Aspartate Amino Transf (AST/SGOT) 18 U/L (15-37) Alanine Aminotransferase (ALT/SGPT) 16 U/L (16-63) Alkaline Phosphatase 56 U/L (46-116) Total Protein 6.5 g/dL (6.4-8.2) Albumin 2.7 g/dL (3.4-5.0) Albumin/Globulin Ratio 0.7 (1.0-1.7) Vitals/I & O Vital Sign - Last 24 Hours 12/24/16 12/24/16 12/24/16 12/24/16 10:31 11:00 15:00 19:00 Temp 98.8 98.2 98.1 98.8 98.2 98.1 Pulse 83 71 87 Resp 16 16 18 B/P (MAP) 123/77 (92) 124/71 (88) 131/81 (98) Pulse Ox 95 98 100 O2 Delivery Room Air Room Air Room Air Room Air 12/24/16 12/24/16 12/24/16 12/24/16 20:30 21:29 22:30 22:33 Temp 98.6 98.6 Pulse 74 Resp 17 18 16 B/P (MAP) 149/87 (107) Pulse Ox 100 99 99 O2 Delivery Room Air Room Air Room Air Room Air 12/25/16 12/25/16 02:34 07:00 Temp 98.6 98.6 98.6 98.6 Pulse 76 73 Resp 17 18 B/P (MAP) 113/73 (86) 119/70 (86) Pulse Ox 98 96 O2 Delivery Room Air Room Air GEOFF WEBER MD Dec 25, 2016 09:46
[2016-12-25 11:00] VITALS: BP 125/86
--- NOTE | 2016-12-25 12:11 | PDOC ---
SURGICAL PROGRESS NOTE Subjective POD#5 The pt is doing well without any signs or symptoms. He does not have a fever and he has a normal WBC. He is able to eat regular diet and continues to have flatus and BM. He is ambulating well and reports sleeping okay. Pathology report indicates metastatic adenocarcinoma of colorectal origin similar to the one from his resected transverse colon a year ago. Ready for discharge but medical team will get sleep apnea and plan to discharge 12/26/2016. Vital Signs Vital Signs Date Time Temp Pulse Resp B/P (MAP) Pulse Ox O2 Delivery O2 Flow Rate FiO2 12/25/16 07:00 98.6 73 18 119/70 (86) 96 Room Air 98.6 12/24/16 07:40 2.0 Labs Laboratory Tests Test 12/24/16 06:00 12/25/16 04:50 White Blood Count 5.5 x10^3/uL (4.0-11.0) 5.2 x10^3/uL (4.0-11.0) Red Blood Count 4.32 x10^6/uL (4.30-5.70) 4.32 x10^6/uL (4.30-5.70) Hemoglobin 12.7 g/dL (13.0-17.5) 12.8 g/dL (13.0-17.5) Hematocrit 38.0 % (39.0-53.0) 37.8 % (39.0-53.0) Mean Corpuscular Volume 88 fL (79-100) 87 fL (79-100) Mean Corpuscular Hemoglobin 30 pg (25-35) 30 pg (25-35) Mean Corpuscular Hemoglobin Concent 34 g/dL (31-37) 34 g/dL (31-37) Red Cell Distribution Width 13.6 % (11.5-14.5) 13.4 % (11.5-14.5) Platelet Count 176 x10^3/uL (140-400) 177 x10^3/uL (140-400) Neutrophils (%) (Auto) 64 % (31-73) 60 % (31-73) Lymphocytes (%) (Auto) 24 % (24-48) 28 % (24-48) Monocytes (%) (Auto) 8 % (0-9) 9 % (0-9) Eosinophils (%) (Auto) 4 % (0-3) 3 % (0-3) Basophils (%) (Auto) 1 % (0-3) 1 % (0-3) Neutrophils # (Auto) 3.5 x10^3uL (1.8-7.7) 3.1 x10^3uL (1.8-7.7) Lymphocytes # (Auto) 1.3 x10^3/uL (1.0-4.8) 1.4 x10^3/uL (1.0-4.8) Monocytes # (Auto) 0.4 x10^3/uL (0.0-1.1) 0.5 x10^3/uL (0.0-1.1) Eosinophils # (Auto) 0.2 x10^3/uL (0.0-0.7) 0.2 x10^3/uL (0.0-0.7) Basophils # (Auto) 0.0 x10^3/uL (0.0-0.2) 0.0 x10^3/uL (0.0-0.2) Sodium Level 142 mmol/L (136-145) 142 mmol/L (136-145) Potassium Level 3.5 mmol/L (3.5-5.1) 3.5 mmol/L (3.5-5.1) Chloride Level 105 mmol/L (98-107) 104 mmol/L (98-107) Carbon Dioxide Level 28 mmol/L (21-32) 29 mmol/L (21-32) Anion Gap 9 (6-14) 9 (6-14) Blood Urea Nitrogen 10 mg/dL (8-26) 11 mg/dL (8-26) Creatinine 0.9 mg/dL (0.7-1.3) 0.9 mg/dL (0.7-1.3) Estimated GFR (Cockcroft-Gault) 102.2 102.2 Glucose Level 89 mg/dL (70-99) 89 mg/dL (70-99) Calcium Level 9.0 mg/dL (8.5-10.1) 9.2 mg/dL (8.5-10.1) BUN/Creatinine Ratio 12 (6-20) Total Bilirubin 0.5 mg/dL (0.2-1.0) Aspartate Amino Transf (AST/SGOT) 18 U/L (15-37) Alanine Aminotransferase (ALT/SGPT) 16 U/L (16-63) Alkaline Phosphatase 56 U/L (46-116) Total Protein 6.5 g/dL (6.4-8.2) Albumin 2.7 g/dL (3.4-5.0) Albumin/Globulin Ratio 0.7 (1.0-1.7) Laboratory Tests Test 12/25/16 04:50 White Blood Count 5.2 x10^3/uL (4.0-11.0) Red Blood Count 4.32 x10^6/uL (4.30-5.70) Hemoglobin 12.8 g/dL (13.0-17.5) Hematocrit 37.8 % (39.0-53.0) Mean Corpuscular Volume 87 fL (79-100) Mean Corpuscular Hemoglobin 30 pg (25-35) Mean Corpuscular Hemoglobin Concent 34 g/dL (31-37) Red Cell Distribution Width 13.4 % (11.5-14.5) Platelet Count 177 x10^3/uL (140-400) Neutrophils (%) (Auto) 60 % (31-73) Lymphocytes (%) (Auto) 28 % (24-48) Monocytes (%) (Auto) 9 % (0-9) Eosinophils (%) (Auto) 3 % (0-3) Basophils (%) (Auto) 1 % (0-3) Neutrophils # (Auto) 3.1 x10^3uL (1.8-7.7) Lymphocytes # (Auto) 1.4 x10^3/uL (1.0-4.8) Monocytes # (Auto) 0.5 x10^3/uL (0.0-1.1) Eosinophils # (Auto) 0.2 x10^3/uL (0.0-0.7) Basophils # (Auto) 0.0 x10^3/uL (0.0-0.2) Sodium Level 142 mmol/L (136-145) Potassium Level 3.5 mmol/L (3.5-5.1) Chloride Level 104 mmol/L (98-107) Carbon Dioxide Level 29 mmol/L (21-32) Anion Gap 9 (6-14) Blood Urea Nitrogen 11 mg/dL (8-26) Creatinine 0.9 mg/dL (0.7-1.3) Estimated GFR (Cockcroft-Gault) 102.2 BUN/Creatinine Ratio 12 (6-20) Glucose Level 89 mg/dL (70-99) Calcium Level 9.2 mg/dL (8.5-10.1) Total Bilirubin 0.5 mg/dL (0.2-1.0) Aspartate Amino Transf (AST/SGOT) 18 U/L (15-37) Alanine Aminotransferase (ALT/SGPT) 16 U/L (16-63) Alkaline Phosphatase 56 U/L (46-116) Total Protein 6.5 g/dL (6.4-8.2) Albumin 2.7 g/dL (3.4-5.0) Albumin/Globulin Ratio 0.7 (1.0-1.7) TRICIA LOPEZ MD Dec 25, 2016 12:11
[2016-12-25] MEDS: HEPARIN PF for SUB-Q USE 5,000 UNIT/0.5 ML VIAL. SQ SCH (13:43)
--- NOTE | 2016-12-25 14:04 | PDOC ---
PROGRESS NOTES Subjective Subjective HPI - Recurrent colon cancer. He was diagnosed with colon cancer in October of 2015 and he underwent a right hemicolectomy on 11/29/2015. It was staged as a T3 N0 M0, stage IIA colon cancer. Surveillance CT scan on 11/20/2016 revealed a 2.3 cm soft tissue mass in the central mesentery and a PET scan was positive on 12/06/2016 for a solitary metastatic implant. ROS - abd pain controlled Objective Objective Vital Signs Date Time Temp Pulse Resp B/P (MAP) Pulse Ox O2 Delivery O2 Flow Rate FiO2 12/25/16 11:00 71 18 125/86 (99) 94 Room Air 12/25/16 07:00 98.6 98.6 12/24/16 07:40 2.0 Physical Exam Heart: Normal S1, Normal S2 General: Alert, Oriented X3, No acute distress Lungs: Clear to auscultation Neuro: Normal speech Psych/Mental Status: Mental status NL Assessment Assessment IMPRESSION AND PLAN: 1. Recurrent colon cancer. He was diagnosed with colon cancer in October of 2015 and he underwent a right hemicolectomy on 11/29/2015. It was staged as a T3 N0 M0, stage IIA colon cancer. Ten lymph nodes were examined and they were not involved. Adjuvant chemotherapy was recommended but the patient declined. Surveillance CT scan on 11/20/2016 revealed a 2.3 cm soft tissue mass in the central mesentery and a PET scan was positive on 12/06/2016 for a solitary metastatic implant. Hence, exploratory laparotomy and resection was recommended and he underwent a procedure on 12/20/2016. Pathology confirmed metastatic adenocarcinoma. I would recommend adjuvant chemotherapy. Pt prefers to get treatments on [place] (close rto home). Dr Parks suggested that he could see Dr Valdez and I agree. 2. Abdominal pain postoperative. Continue pain management per Dr. Parks. Comment Review of Relevant I have reviewed the following items sarath (where applicable) has been applied. Labs Laboratory Tests Test 12/24/16 06:00 12/25/16 04:50 White Blood Count 5.5 x10^3/uL (4.0-11.0) 5.2 x10^3/uL (4.0-11.0) Red Blood Count 4.32 x10^6/uL (4.30-5.70) 4.32 x10^6/uL (4.30-5.70) Hemoglobin 12.7 g/dL (13.0-17.5) 12.8 g/dL (13.0-17.5) Hematocrit 38.0 % (39.0-53.0) 37.8 % (39.0-53.0) Mean Corpuscular Volume 88 fL (79-100) 87 fL (79-100) Mean Corpuscular Hemoglobin 30 pg (25-35) 30 pg (25-35) Mean Corpuscular Hemoglobin Concent 34 g/dL (31-37) 34 g/dL (31-37) Red Cell Distribution Width 13.6 % (11.5-14.5) 13.4 % (11.5-14.5) Platelet Count 176 x10^3/uL (140-400) 177 x10^3/uL (140-400) Neutrophils (%) (Auto) 64 % (31-73) 60 % (31-73) Lymphocytes (%) (Auto) 24 % (24-48) 28 % (24-48) Monocytes (%) (Auto) 8 % (0-9) 9 % (0-9) Eosinophils (%) (Auto) 4 % (0-3) 3 % (0-3) Basophils (%) (Auto) 1 % (0-3) 1 % (0-3) Neutrophils # (Auto) 3.5 x10^3uL (1.8-7.7) 3.1 x10^3uL (1.8-7.7) Lymphocytes # (Auto) 1.3 x10^3/uL (1.0-4.8) 1.4 x10^3/uL (1.0-4.8) Monocytes # (Auto) 0.4 x10^3/uL (0.0-1.1) 0.5 x10^3/uL (0.0-1.1) Eosinophils # (Auto) 0.2 x10^3/uL (0.0-0.7) 0.2 x10^3/uL (0.0-0.7) Basophils # (Auto) 0.0 x10^3/uL (0.0-0.2) 0.0 x10^3/uL (0.0-0.2) Sodium Level 142 mmol/L (136-145) 142 mmol/L (136-145) Potassium Level 3.5 mmol/L (3.5-5.1) 3.5 mmol/L (3.5-5.1) Chloride Level 105 mmol/L (98-107) 104 mmol/L (98-107) Carbon Dioxide Level 28 mmol/L (21-32) 29 mmol/L (21-32) Anion Gap 9 (6-14) 9 (6-14) Blood Urea Nitrogen 10 mg/dL (8-26) 11 mg/dL (8-26) Creatinine 0.9 mg/dL (0.7-1.3) 0.9 mg/dL (0.7-1.3) Estimated GFR (Cockcroft-Gault) 102.2 102.2 Glucose Level 89 mg/dL (70-99) 89 mg/dL (70-99) Calcium Level 9.0 mg/dL (8.5-10.1) 9.2 mg/dL (8.5-10.1) BUN/Creatinine Ratio 12 (6-20) Total Bilirubin 0.5 mg/dL (0.2-1.0) Aspartate Amino Transf (AST/SGOT) 18 U/L (15-37) Alanine Aminotransferase (ALT/SGPT) 16 U/L (16-63) Alkaline Phosphatase 56 U/L (46-116) Total Protein 6.5 g/dL (6.4-8.2) Albumin 2.7 g/dL (3.4-5.0) Albumin/Globulin Ratio 0.7 (1.0-1.7) Laboratory Tests Test 12/25/16 04:50 White Blood Count 5.2 x10^3/uL (4.0-11.0) Red Blood Count 4.32 x10^6/uL (4.30-5.70) Hemoglobin 12.8 g/dL (13.0-17.5) Hematocrit 37.8 % (39.0-53.0) Mean Corpuscular Volume 87 fL (79-100) Mean Corpuscular Hemoglobin 30 pg (25-35) Mean Corpuscular Hemoglobin Concent 34 g/dL (31-37) Red Cell Distribution Width 13.4 % (11.5-14.5) Platelet Count 177 x10^3/uL (140-400) Neutrophils (%) (Auto) 60 % (31-73) Lymphocytes (%) (Auto) 28 % (24-48) Monocytes (%) (Auto) 9 % (0-9) Eosinophils (%) (Auto) 3 % (0-3) Basophils (%) (Auto) 1 % (0-3) Neutrophils # (Auto) 3.1 x10^3uL (1.8-7.7) Lymphocytes # (Auto) 1.4 x10^3/uL (1.0-4.8) Monocytes # (Auto) 0.5 x10^3/uL (0.0-1.1) Eosinophils # (Auto) 0.2 x10^3/uL (0.0-0.7) Basophils # (Auto) 0.0 x10^3/uL (0.0-0.2) Sodium Level 142 mmol/L (136-145) Potassium Level 3.5 mmol/L (3.5-5.1) Chloride Level 104 mmol/L (98-107) Carbon Dioxide Level 29 mmol/L (21-32) Anion Gap 9 (6-14) Blood Urea Nitrogen 11 mg/dL (8-26) Creatinine 0.9 mg/dL (0.7-1.3) Estimated GFR (Cockcroft-Gault) 102.2 BUN/Creatinine Ratio 12 (6-20) Glucose Level 89 mg/dL (70-99) Calcium Level 9.2 mg/dL (8.5-10.1) Total Bilirubin 0.5 mg/dL (0.2-1.0) Aspartate Amino Transf (AST/SGOT) 18 U/L (15-37) Alanine Aminotransferase (ALT/SGPT) 16 U/L (16-63) Alkaline Phosphatase 56 U/L (46-116) Total Protein 6.5 g/dL (6.4-8.2) Albumin 2.7 g/dL (3.4-5.0) Albumin/Globulin Ratio 0.7 (1.0-1.7) Medications Current Medications Midazolam HCl (Versed) 2 mg PRN 1X PRN IV PRIOR TO PROCEDURE; Start 12/20/16 at 11:15; Stop 12/21/16 at 11:14; Status DC Fentanyl Citrate (Fentanyl 2ml Vial) 25 mcg PRN Q5MIN PRN IV X 2 DOSES FOR PAIN ; Start 12/20/16 at 11:15; Stop 12/21/16 at 11:14; Status DC Fentanyl Citrate (Fentanyl 2ml Vial) 50 mcg PRN Q5MIN PRN IV X 2 DOSES FOR PAIN ; Start 12/20/16 at 11:15; Stop 12/21/16 at 11:14; Status DC Ringer's Solution 1,000 ml @ 125 mls/hr Q8H IV Last administered on 12/20/16t 10:40; Start 12/20/16 at 11:13; Stop 12/20/16 at 23:12; Status DC Lidocaine HCl (Xylocaine-Mpf 1% Vial) 2 ml 1X PRN PRN ID IV START; Start at 11:15; Stop 12/21/16 at 11:14; Status DC Ringer's Solution 1,000 ml @ 125 mls/hr Q8H IV ; Start 12/20/16 at 11:15; Stop 12/20/16 at 23:14; Status DC Propofol 20 ml @ As Directed STK-MED ONCE IV ; Start 12/20/16 at 12:11; Stop at 12:12; Status DC Dexamethasone Sodium Phosphate (Decadron) 20 mg STK-MED ONCE .ROUTE ; Start 12/20/16 at 12:11; Stop 12/20/16 at 12:12; Status DC Famotidine (Pepcid) 20 mg STK-MED ONCE .ROUTE ; Start 12/20/16 at 12:11; Stop 12/20/16 at 12:12; Status DC Lidocaine HCl (Lidocaine Pf 2% Vial) 5 ml STK-MED ONCE .ROUTE ; Start 12/20/16 at 12:11; Stop 12/20/16 at 12:12; Status DC Ondansetron HCl (Zofran) 4 mg STK-MED ONCE .ROUTE ; Start 12/20/16 at 12:11; Stop 12/20/16 at 12:12; Status DC Rocuronium [place] (Zemuron) 50 mg STK-MED ONCE .ROUTE ; Start 12/20/16 at 12:13 ; Stop 12/20/16 at 12:14; Status DC Fentanyl Citrate (Fentanyl 2ml Vial) 100 mcg STK-MED ONCE .ROUTE ; Start at 12:13; Stop 12/20/16 at 12:14; Status DC Midazolam HCl (Versed) 2 mg STK-MED ONCE .ROUTE ; Start 12/20/16 at 12:13; Stop 12/20/16 at 12:14; Status DC Lidocaine HCl (Xylocaine 2% Topical 5gm Tube) 5 latha STK-MED ONCE TP ; Start 12/20/16 at 12:15; Stop 12/20/16 at 12:16; Status DC Bupivacaine HCl/ Epinephrine Bitart (Marcaine-Epi 0.25%-[id number]) 50 ml STK-MED ONCE .ROUTE ; Start 12/20/16 at 11:48; Stop 12/20/16 at 12:48; Status DC Sevoflurane (Ultane) 90 ml STK-MED ONCE IH ; Start 12/20/16 at 12:59; Stop 12/20 at 13:00; Status DC Sodium Chloride (Sodium Chloride) 50 ml STK-MED ONCE IJ ; Start 12/20/16 at 13: 09; Stop 12/20/16 at 13:10; Status DC Morphine Sulfate 10 mg STK-MED ONCE .ROUTE ; Start 12/20/16 at 13:10; Stop 12/20 at 13:11; Status DC Bupivacaine HCl/ Epinephrine Bitart (Marcaine-Epi 0.5%-1:[id number]) 50 ml STK-MED ONCE .ROUTE Last administered on 12/20/16 15:07; Start 12/20/16 at 14:04; Stop 12/20/16 at 15:04; Status DC Neostigmine Methylsulfate (Bloxiverz) 10 mg STK-MED ONCE .ROUTE ; Start at 15:15; Stop 12/20/16 at 15:16; Status DC Glycopyrrolate (Robinul) 1 mg STK-MED ONCE .ROUTE ; Start 12/20/16 at 15:15; Stop 12/20/16 at 15:16; Status DC Cefazolin Sodium 1 gm/Dextrose 50 ml @ 100 mls/hr Q8H IV ; Start 12/20/16 at 16 :45; Stop 12/20/16 at 19:08; Status DC Metronidazole 100 ml @ 100 mls/hr Q12HR IV Last administered on 12/21/16t 10: 00; Start 12/20/16 at 21:00; Stop 12/21/16 at 20:59; Status DC Famotidine (Pepcid) 20 mg BID IVP Last administered on 12/23/16 09:09; Start 12/20/16 at 21:00; Stop 12/23/16 at 21:52; Status DC Sodium Chloride (Normal Saline Flush) 3 ml QSHIFT PRN IV AFTER MEDS AND BLOOD DRAWS; Start 12/20/16 at 16:45 Potassium Chloride/Sodium Chloride 1,000 ml @ 125 mls/hr Q8H IV Last administered on 12/21/16 16:26; Start 12/20/16 at 16:33; Stop 12/21/16 at 17:49 ; Status DC Hydromorphone HCl 30 ml @ 0 mls/hr CONT PRN PRN IV PROTOCOL Last administered on 12/20/16 17:36; Start 12/20/16 at 16:45; Stop 12/23/16 at 21:52; Status DC Ondansetron HCl (Zofran) 4 mg PRN Q6HRS PRN IV NAUESA, 1ST CHOICE Last administered on 12/21/16 15:25; Start 12/20/16 at 16:45 Ketorolac Tromethamine (Toradol) 15 mg PRN Q6HRS PRN IV PAIN Last administered on 12/21/16 21:11; Start 12/20/16 at 16:45; Stop 12/25/16 at 16:44 Prochlorperazine Edisylate (Compazine) 10 mg STK-MED ONCE .ROUTE ; Start at 17:23; Stop 12/20/16 at 17:24; Status DC Ondansetron HCl (Zofran) 4 mg PRN Q6HRS PRN IV NAUSEA/VOMITING; Start 12/20/16 at 17:30; Stop 12/20/16 at 21:00; Status DC Fentanyl Citrate (Fentanyl 2ml Vial) 25 mcg PRN Q5MIN PRN IV MILD PAIN; Start 12/20/16 at 17:30; Stop 12/21/16 at 17:29; Status UNV Fentanyl Citrate (Fentanyl 2ml Vial) 50 mcg PRN Q5MIN PRN IV MODERATE PAIN; Start 12/20/16 at 17:30; Stop 12/21/16 at 17:29; Status UNV Morphine Sulfate 1 mg PRN Q10MIN PRN IV SEVERE PAIN; Start 12/20/16 at 17:30; Stop 12/20/16 at 21:00; Status DC Ringer's Solution 1,000 ml @ 30 mls/hr Q24H IV ; Start 12/20/16 at 17:24; Stop 12/21/16 at 05:23; Status DC Lidocaine HCl (Xylocaine-Mpf 1% Vial) 2 ml 1X PRN PRN ID IV START; Start at 17:30; Stop 12/20/16 at 21:00; Status DC Hydromorphone HCl (Dilaudid) 0.5 mg PRN Q10MIN PRN IV SEV PAIN, Second choice; Start 12/20/16 at 17:30; Stop 12/20/16 at 18:00; Status DC Prochlorperazine Edisylate (Compazine) 5 mg PACU PRN PRN IV NAUSEA, MRX1 Last administered on 12/20/16 17:30; Start 12/20/16 at 17:30; Stop 12/20/16 at 21:00 ; Status DC Cefoxitin Sodium 50 ml @ 100 mls/hr 1X PERIOP PRN IV SEE COMMENTS; Start 12/20 at 18:30; Stop 12/20/16 at 19:09; Status DC Cefazolin Sodium (Ancef) 1 gm Q8H IVP Last administered on 12/21/16 14:40; Start 12/20/16 at 21:00; Stop 12/21/16 at 13:01; Status DC Saliva Substitute (Biotene Moisturizing Mouth) 2 spray PRN Q15MIN PRN PO DRY MOUTH Last administered on 12/21/16 09:55; Start 12/21/16 at 06:45 Cefazolin Sodium (Ancef 1gm Ivpb For Omni) 1 gm STK-MED ONCE IV ; Start at 10:00; Stop 12/21/16 at 13:36; Status DC Metronidazole (FLAGYL 500Mmg PREMIX) 500 mg STK-MED ONCE IV ; Start 12/20/16 at 10:00; Stop 12/21/16 at 13:42; Status DC Sodium Chloride 1,000 ml @ 125 mls/hr Q8HRS IV Last administered on 12/22/16 10:59; Start 12/21/16 at 22:00; Stop 12/22/16 at 17:28; Status DC Heparin Sodium (Porcine) (Heparin Sq) 5,000 unit Q12H SQ Last administered on 12/25/16 13:43; Start 12/22/16 at 12:00 Sodium Chloride 1,000 ml @ 75 mls/hr [id number] IV Last administered on 16:03; Start 12/22/16 at 12:30; Stop 12/23/16 at 21:52; Status DC Acetaminophen (Tylenol) 650 mg PRN Q6HRS PRN PO HEADACHE Last administered on 12/23/16 09:54; Start 12/22/16 at 20:45 Zolpidem Tartrate (Ambien) 5 mg PRN QHS PRN PO INSOMNIA Last administered on 21:30; Start 12/23/16 at 12:15 Acetaminophen (Tylenol) 650 mg 1X STAT PO Last administered on 12/23/16 15:58 ; Start 12/23/16 at 15:36; Stop 12/23/16 at 15:39; Status DC Famotidine (Pepcid) 20 mg BID PO Last administered on 12/25/16 09:13; Start 12/23/16 at 22:00 Acetaminophen/ Hydrocodone Bitart (Lortab 7.5/325) 1 tab PRN Q4HRS PRN PO PAIN Last administered on 12/24/16 21:29; Start 12/23/16 at 22:00 Active Scripts Active Reported Neomycin Sulfate 500 Mg Tablet 1,000 Mg PO EVERY 6 HRS Aspirin 81 Mg Tab.chew 81 Mg PO DAILY Vitals/I & O Vital Sign - Last 24 Hours 12/24/16 12/24/16 12/24/16 12/24/16 15:00 19:00 20:30 21:29 Temp 98.2 98.1 98.2 98.1 Pulse 71 87 Resp 18 17 B/P (MAP) 124/71 (88) 131/81 (98) Pulse Ox 98 100 100 O2 Delivery Room Air Room Air Room Air Room Air 12/24/16 12/24/16 12/25/16 12/25/16 22:30 22:33 02:34 07:00 Temp 98.6 98.6 98.6 98.6 98.6 98.6 Pulse 74 76 73 Resp 18 16 17 18 B/P (MAP) 149/87 (107) 113/73 (86) 119/70 (86) Pulse Ox 99 99 98 96 O2 Delivery Room Air Room Air Room Air Room Air 12/25/16 12/25/16 08:00 11:00 Pulse 71 Resp 18 B/P (MAP) 125/86 (99) Pulse Ox 94 O2 Delivery Room Air Room Air DAPHNEY NAIDU MD Dec 25, 2016 14:04
[2016-12-25 15:00] VITALS: BP 133/76
[2016-12-25 19:00] VITALS: BP 132/87
[2016-12-25] MEDS: HYDROcodone/APAP 7.5/325MG 1 TAB TABLET PO PRN (20:55)
[2016-12-25 22:48] VITALS: BP 123/82
[2016-12-26 02:38] VITALS: BP 113/69
[2016-12-26 07:00] VITALS: BP 112/71
--- NOTE | 2016-12-26 09:55 | PDOC ---
PROGRESS NOTES Subjective Subjective slept well,ambulating Objective Objective Vital Signs Date Time Temp Pulse Resp B/P (MAP) Pulse Ox O2 Delivery O2 Flow Rate FiO2 12/26/16 07:00 97.7 72 18 112/71 (85) 95 Room Air 97.7 Physical Exam Abdomen: Soft, Other (incision clean) Heart: Normal S1, Normal S2 General: Alert, Oriented X3, No acute distress HEENT: Atraumatic Lungs: Clear to auscultation MUSCULOSKELETAL: No deformity Neuro: Normal speech Psych/Mental Status: Mental status NL Skin: No rashes Assessment Assessment 1. Mesenteric mass, s/p resection, pod#4, adeno ca colon ,mets locally 2. History of adenocarcinoma of the colon, had a partial colon resection last year. PLAN: d/c home today. tolerating diet,ambulating well ambien for sleep. nocturnal desaturation study normal ,no desaturation labs ok spoke with oncology Problems: Comment Review of Relevant I have reviewed the following items sarath (where applicable) has been applied. Vitals/I & O Vital Sign - Last 24 Hours 12/25/16 12/25/16 12/25/16 12/25/16 11:00 15:00 19:00 20:30 Temp 99.5 99.2 99.5 99.2 Pulse 71 77 89 Resp 18 18 18 B/P (MAP) 125/86 (99) 133/76 (95) 132/87 (102) Pulse Ox 94 98 97 O2 Delivery Room Air Room Air Room Air Room Air 12/25/16 12/25/16 12/25/16 12/26/16 20:55 22:00 22:48 02:38 Temp 99.0 97.6 99.0 97.6 Pulse 76 67 Resp 17 18 16 B/P (MAP) 123/82 (96) 113/69 (84) Pulse Ox 97 97 97 99 O2 Delivery Room Air Room Air Room Air Room Air 12/26/16 07:00 Temp 97.7 97.7 Pulse 72 Resp 18 B/P (MAP) 112/71 (85) Pulse Ox 95 O2 Delivery Room Air GEOFF WEBER MD Dec 26, 2016 09:55
[2016-12-26] MEDS: ACETAMINOPHEN 325 MG TABLET. PO PRN (09:59)
[2016-12-26] MEDS: FAMOTIDINE 20 MG TABLET. PO SCH (09:59)
--- NOTE | 2016-12-26 10:03 | PDOC ---
SURGICAL PROGRESS NOTE Subjective POD# 6 Doing very well with normal GI function and without fever . Instructions given and will discharge today and see in office in 3-5 days. Will begin chemorx in about 4 weeks. Vital Signs Vital Signs Date Time Temp Pulse Resp B/P (MAP) Pulse Ox O2 Delivery O2 Flow Rate FiO2 12/26/16 07:00 97.7 72 18 112/71 (85) 95 Room Air 97.7 Labs Laboratory Tests Test 12/25/16 04:50 White Blood Count 5.2 x10^3/uL (4.0-11.0) Red Blood Count 4.32 x10^6/uL (4.30-5.70) Hemoglobin 12.8 g/dL (13.0-17.5) Hematocrit 37.8 % (39.0-53.0) Mean Corpuscular Volume 87 fL (79-100) Mean Corpuscular Hemoglobin 30 pg (25-35) Mean Corpuscular Hemoglobin Concent 34 g/dL (31-37) Red Cell Distribution Width 13.4 % (11.5-14.5) Platelet Count 177 x10^3/uL (140-400) Neutrophils (%) (Auto) 60 % (31-73) Lymphocytes (%) (Auto) 28 % (24-48) Monocytes (%) (Auto) 9 % (0-9) Eosinophils (%) (Auto) 3 % (0-3) Basophils (%) (Auto) 1 % (0-3) Neutrophils # (Auto) 3.1 x10^3uL (1.8-7.7) Lymphocytes # (Auto) 1.4 x10^3/uL (1.0-4.8) Monocytes # (Auto) 0.5 x10^3/uL (0.0-1.1) Eosinophils # (Auto) 0.2 x10^3/uL (0.0-0.7) Basophils # (Auto) 0.0 x10^3/uL (0.0-0.2) Sodium Level 142 mmol/L (136-145) Potassium Level 3.5 mmol/L (3.5-5.1) Chloride Level 104 mmol/L (98-107) Carbon Dioxide Level 29 mmol/L (21-32) Anion Gap 9 (6-14) Blood Urea Nitrogen 11 mg/dL (8-26) Creatinine 0.9 mg/dL (0.7-1.3) Estimated GFR (Cockcroft-Gault) 102.2 BUN/Creatinine Ratio 12 (6-20) Glucose Level 89 mg/dL (70-99) Calcium Level 9.2 mg/dL (8.5-10.1) Total Bilirubin 0.5 mg/dL (0.2-1.0) Aspartate Amino Transf (AST/SGOT) 18 U/L (15-37) Alanine Aminotransferase (ALT/SGPT) 16 U/L (16-63) Alkaline Phosphatase 56 U/L (46-116) Total Protein 6.5 g/dL (6.4-8.2) Albumin 2.7 g/dL (3.4-5.0) Albumin/Globulin Ratio 0.7 (1.0-1.7) TRICIA LOPEZ MD Dec 26, 2016 10:03
[2016-12-26 11:00] VITALS: BP 120/83
[2016-12-26] MEDS: HEPARIN PF for SUB-Q USE 5,000 UNIT/0.5 ML VIAL. SQ SCH ×2 (12:00)
--- NOTE | 2016-12-26 12:18 | PDOC ---
PROGRESS NOTES Subjective Subjective HPI - Recurrent colon cancer. He was diagnosed with colon cancer in October of 2015 and he underwent a right hemicolectomy on 11/29/2015. It was staged as a T3 N0 M0, stage IIA colon cancer ROS - abd pain better Objective Objective Vital Signs Date Time Temp Pulse Resp B/P (MAP) Pulse Ox O2 Delivery O2 Flow Rate FiO2 12/26/16 11:00 97.9 78 18 120/83 (95) 98 Room Air 97.9 12/24/16 07:40 2.0 Physical Exam Heart: Normal S1, Normal S2 General: Alert, Oriented X3, No acute distress Lungs: Clear to auscultation Neuro: Normal speech Psych/Mental Status: Mental status NL, Mood NL Assessment Assessment IMPRESSION AND PLAN: 1. Recurrent colon cancer. He was diagnosed with colon cancer in October of 2015 and he underwent a right hemicolectomy on 11/29/2015. It was staged as a T3 N0 M0, stage IIA colon cancer. Ten lymph nodes were examined and they were not involved. Adjuvant chemotherapy was recommended but the patient declined. Surveillance CT scan on 11/20/2016 revealed a 2.3 cm soft tissue mass in the central mesentery and a PET scan was positive on 12/06/2016 for a solitary metastatic implant. Hence, exploratory laparotomy and resection was recommended and he underwent a procedure on 12/20/2016. Pathology confirmed metastatic adenocarcinoma. I would recommend adjuvant chemotherapy to start in about 4 weeks. Pt prefers to get treatments on [place] (closer to home). Dr Parks suggested that he could see Dr Valdez and I agree. Pt is also considering an opinion with [facility] oncology team. Agree with discharge plans. 2. Abdominal pain postoperative. Continue pain management per Dr. Parks. Comment Review of Relevant I have reviewed the following items sarath (where applicable) has been applied. Labs Laboratory Tests Test 12/25/16 04:50 White Blood Count 5.2 x10^3/uL (4.0-11.0) Red Blood Count 4.32 x10^6/uL (4.30-5.70) Hemoglobin 12.8 g/dL (13.0-17.5) Hematocrit 37.8 % (39.0-53.0) Mean Corpuscular Volume 87 fL (79-100) Mean Corpuscular Hemoglobin 30 pg (25-35) Mean Corpuscular Hemoglobin Concent 34 g/dL (31-37) Red Cell Distribution Width 13.4 % (11.5-14.5) Platelet Count 177 x10^3/uL (140-400) Neutrophils (%) (Auto) 60 % (31-73) Lymphocytes (%) (Auto) 28 % (24-48) Monocytes (%) (Auto) 9 % (0-9) Eosinophils (%) (Auto) 3 % (0-3) Basophils (%) (Auto) 1 % (0-3) Neutrophils # (Auto) 3.1 x10^3uL (1.8-7.7) Lymphocytes # (Auto) 1.4 x10^3/uL (1.0-4.8) Monocytes # (Auto) 0.5 x10^3/uL (0.0-1.1) Eosinophils # (Auto) 0.2 x10^3/uL (0.0-0.7) Basophils # (Auto) 0.0 x10^3/uL (0.0-0.2) Sodium Level 142 mmol/L (136-145) Potassium Level 3.5 mmol/L (3.5-5.1) Chloride Level 104 mmol/L (98-107) Carbon Dioxide Level 29 mmol/L (21-32) Anion Gap 9 (6-14) Blood Urea Nitrogen 11 mg/dL (8-26) Creatinine 0.9 mg/dL (0.7-1.3) Estimated GFR (Cockcroft-Gault) 102.2 BUN/Creatinine Ratio 12 (6-20) Glucose Level 89 mg/dL (70-99) Calcium Level 9.2 mg/dL (8.5-10.1) Total Bilirubin 0.5 mg/dL (0.2-1.0) Aspartate Amino Transf (AST/SGOT) 18 U/L (15-37) Alanine Aminotransferase (ALT/SGPT) 16 U/L (16-63) Alkaline Phosphatase 56 U/L (46-116) Total Protein 6.5 g/dL (6.4-8.2) Albumin 2.7 g/dL (3.4-5.0) Albumin/Globulin Ratio 0.7 (1.0-1.7) Medications Current Medications Midazolam HCl (Versed) 2 mg PRN 1X PRN IV PRIOR TO PROCEDURE; Start 12/20/16 at 11:15; Stop 12/21/16 at 11:14; Status DC Fentanyl Citrate (Fentanyl 2ml Vial) 25 mcg PRN Q5MIN PRN IV X 2 DOSES FOR PAIN ; Start 12/20/16 at 11:15; Stop 12/21/16 at 11:14; Status DC Fentanyl Citrate (Fentanyl 2ml Vial) 50 mcg PRN Q5MIN PRN IV X 2 DOSES FOR PAIN ; Start 12/20/16 at 11:15; Stop 12/21/16 at 11:14; Status DC Ringer's Solution 1,000 ml @ 125 mls/hr Q8H IV Last administered on 12/20/16t 10:40; Start 12/20/16 at 11:13; Stop 12/20/16 at 23:12; Status DC Lidocaine HCl (Xylocaine-Mpf 1% Vial) 2 ml 1X PRN PRN ID IV START; Start at 11:15; Stop 12/21/16 at 11:14; Status DC Ringer's Solution 1,000 ml @ 125 mls/hr Q8H IV ; Start 12/20/16 at 11:15; Stop 12/20/16 at 23:14; Status DC Propofol 20 ml @ As Directed STK-MED ONCE IV ; Start 12/20/16 at 12:11; Stop at 12:12; Status DC Dexamethasone Sodium Phosphate (Decadron) 20 mg STK-MED ONCE .ROUTE ; Start 12/20/16 at 12:11; Stop 12/20/16 at 12:12; Status DC Famotidine (Pepcid) 20 mg STK-MED ONCE .ROUTE ; Start 12/20/16 at 12:11; Stop 12/20/16 at 12:12; Status DC Lidocaine HCl (Lidocaine Pf 2% Vial) 5 ml STK-MED ONCE .ROUTE ; Start 12/20/16 at 12:11; Stop 12/20/16 at 12:12; Status DC Ondansetron HCl (Zofran) 4 mg STK-MED ONCE .ROUTE ; Start 12/20/16 at 12:11; Stop 12/20/16 at 12:12; Status DC Rocuronium Bruce (Zemuron) 50 mg STK-MED ONCE .ROUTE ; Start 12/20/16 at 12:13 ; Stop 12/20/16 at 12:14; Status DC Fentanyl Citrate (Fentanyl 2ml Vial) 100 mcg STK-MED ONCE .ROUTE ; Start at 12:13; Stop 12/20/16 at 12:14; Status DC Midazolam HCl (Versed) 2 mg STK-MED ONCE .ROUTE ; Start 12/20/16 at 12:13; Stop 12/20/16 at 12:14; Status DC Lidocaine HCl (Xylocaine 2% Topical 5gm Tube) 5 latha STK-MED ONCE TP ; Start 12/20/16 at 12:15; Stop 12/20/16 at 12:16; Status DC Bupivacaine HCl/ Epinephrine Bitart (Marcaine-Epi 0.25%-1:[id number]) 50 ml STK-MED ONCE .ROUTE ; Start 12/20/16 at 11:48; Stop 12/20/16 at 12:48; Status DC Sevoflurane (Ultane) 90 ml STK-MED ONCE IH ; Start 12/20/16 at 12:59; Stop 12/20 at 13:00; Status DC Sodium Chloride (Sodium Chloride) 50 ml STK-MED ONCE IJ ; Start 12/20/16 at 13: 09; Stop 12/20/16 at 13:10; Status DC Morphine Sulfate 10 mg STK-MED ONCE .ROUTE ; Start 12/20/16 at 13:10; Stop 12/20 at 13:11; Status DC Bupivacaine HCl/ Epinephrine Bitart (Marcaine-Epi 0.5%-1:[id number]) 50 ml STK-MED ONCE .ROUTE Last administered on 12/20/16t 15:07; Start 12/20/16 at 14:04; Stop 12/20/16 at 15:04; Status DC Neostigmine Methylsulfate (Bloxiverz) 10 mg STK-MED ONCE .ROUTE ; Start at 15:15; Stop 12/20/16 at 15:16; Status DC Glycopyrrolate (Robinul) 1 mg STK-MED ONCE .ROUTE ; Start 12/20/16 at 15:15; Stop 12/20/16 at 15:16; Status DC Cefazolin Sodium 1 gm/Dextrose 50 ml @ 100 mls/hr Q8H IV ; Start 12/20/16 at 16 :45; Stop 12/20/16 at 19:08; Status DC Metronidazole 100 ml @ 100 mls/hr Q12HR IV Last administered on 12/21/16 10: 00; Start 12/20/16 at 21:00; Stop 12/21/16 at 20:59; Status DC Famotidine (Pepcid) 20 mg BID IVP Last administered on 12/23/16 09:09; Start 12/20/16 at 21:00; Stop 12/23/16 at 21:52; Status DC Sodium Chloride (Normal Saline Flush) 3 ml QSHIFT PRN IV AFTER MEDS AND BLOOD DRAWS; Start 12/20/16 at 16:45 Potassium Chloride/Sodium Chloride 1,000 ml @ 125 mls/hr Q8H IV Last administered on 12/21/16 16:26; Start 12/20/16 at 16:33; Stop 12/21/16 at 17:49 ; Status DC Hydromorphone HCl 30 ml @ 0 mls/hr CONT PRN PRN IV PROTOCOL Last administered on 12/20/16 17:36; Start 12/20/16 at 16:45; Stop 12/23/16 at 21:52; Status DC Ondansetron HCl (Zofran) 4 mg PRN Q6HRS PRN IV NAUESA, 1ST CHOICE Last administered on 12/21/16 15:25; Start 12/20/16 at 16:45 Ketorolac Tromethamine (Toradol) 15 mg PRN Q6HRS PRN IV PAIN Last administered on 12/21/16 21:11; Start 12/20/16 at 16:45; Stop 12/25/16 at 16:44; Status DC Prochlorperazine Edisylate (Compazine) 10 mg STK-MED ONCE .ROUTE ; Start at 17:23; Stop 12/20/16 at 17:24; Status DC Ondansetron HCl (Zofran) 4 mg PRN Q6HRS PRN IV NAUSEA/VOMITING; Start 12/20/16 at 17:30; Stop 12/20/16 at 21:00; Status DC Fentanyl Citrate (Fentanyl 2ml Vial) 25 mcg PRN Q5MIN PRN IV MILD PAIN; Start 12/20/16 at 17:30; Stop 12/21/16 at 17:29; Status UNV Fentanyl Citrate (Fentanyl 2ml Vial) 50 mcg PRN Q5MIN PRN IV MODERATE PAIN; Start 12/20/16 at 17:30; Stop 12/21/16 at 17:29; Status UNV Morphine Sulfate 1 mg PRN Q10MIN PRN IV SEVERE PAIN; Start 12/20/16 at 17:30; Stop 12/20/16 at 21:00; Status DC Ringer's Solution 1,000 ml @ 30 mls/hr Q24H IV ; Start 12/20/16 at 17:24; Stop 12/21/16 at 05:23; Status DC Lidocaine HCl (Xylocaine-Mpf 1% Vial) 2 ml 1X PRN PRN ID IV START; Start at 17:30; Stop 12/20/16 at 21:00; Status DC Hydromorphone HCl (Dilaudid) 0.5 mg PRN Q10MIN PRN IV SEV PAIN, Second choice; Start 12/20/16 at 17:30; Stop 12/20/16 at 18:00; Status DC Prochlorperazine Edisylate (Compazine) 5 mg PACU PRN PRN IV NAUSEA, MRX1 Last administered on 12/20/16 17:30; Start 12/20/16 at 17:30; Stop 12/20/16 at 21:00 ; Status DC Cefoxitin Sodium 50 ml @ 100 mls/hr 1X PERIOP PRN IV SEE COMMENTS; Start 12/20 at 18:30; Stop 12/20/16 at 19:09; Status DC Cefazolin Sodium (Ancef) 1 gm Q8H IVP Last administered on 12/21/16 14:40; Start 12/20/16 at 21:00; Stop 12/21/16 at 13:01; Status DC Saliva Substitute (Biotene Moisturizing Mouth) 2 spray PRN Q15MIN PRN PO DRY MOUTH Last administered on 12/21/16 09:55; Start 12/21/16 at 06:45 Cefazolin Sodium (Ancef 1gm Ivpb For Omni) 1 gm STK-MED ONCE IV ; Start at 10:00; Stop 12/21/16 at 13:36; Status DC Metronidazole (FLAGYL 500Mmg PREMIX) 500 mg STK-MED ONCE IV ; Start 12/20/16 at 10:00; Stop 12/21/16 at 13:42; Status DC Sodium Chloride 1,000 ml @ 125 mls/hr Q8HRS IV Last administered on 12/22/16 10:59; Start 12/21/16 at 22:00; Stop 12/22/16 at 17:28; Status DC Heparin Sodium (Porcine) (Heparin Sq) 5,000 unit Q12H SQ Last administered on 12/25/16 13:43; Start 12/22/16 at 12:00 Sodium Chloride 1,000 ml @ 75 mls/hr [id number] IV Last administered on 16:03; Start 12/22/16 at 12:30; Stop 12/23/16 at 21:52; Status DC Acetaminophen (Tylenol) 650 mg PRN Q6HRS PRN PO HEADACHE Last administered on 12/26/16 09:59; Start 12/22/16 at 20:45 Zolpidem Tartrate (Ambien) 5 mg PRN QHS PRN PO INSOMNIA Last administered on 21:30; Start 12/23/16 at 12:15 Acetaminophen (Tylenol) 650 mg 1X STAT PO Last administered on 12/23/16 15:58 ; Start 12/23/16 at 15:36; Stop 12/23/16 at 15:39; Status DC Famotidine (Pepcid) 20 mg BID PO Last administered on 12/26/16 09:59; Start 12/23/16 at 22:00 Acetaminophen/ Hydrocodone Bitart (Lortab 7.5/325) 1 tab PRN Q4HRS PRN PO PAIN Last administered on 12/25/16 20:55; Start 12/23/16 at 22:00 Active Scripts Active Reported Neomycin Sulfate 500 Mg Tablet 1,000 Mg PO EVERY 6 HRS Aspirin 81 Mg Tab.chew 81 Mg PO DAILY Vitals/I & O Vital Sign - Last 24 Hours 12/25/16 12/25/16 12/25/16 12/25/16 15:00 19:00 20:30 20:55 Temp 99.5 99.2 99.5 99.2 Pulse 77 89 Resp 18 18 17 B/P (MAP) 133/76 (95) 132/87 (102) Pulse Ox 98 97 97 O2 Delivery Room Air Room Air Room Air Room Air 12/25/16 12/25/16 12/26/16 12/26/16 22:00 22:48 02:38 07:00 Temp 99.0 97.6 97.7 99.0 97.6 97.7 Pulse 76 67 72 Resp 18 16 18 B/P (MAP) 123/82 (96) 113/69 (84) 112/71 (85) Pulse Ox 97 97 99 95 O2 Delivery Room Air Room Air Room Air Room Air 12/26/16 11:00 Temp 97.9 97.9 Pulse 78 Resp 18 B/P (MAP) 120/83 (95) Pulse Ox 98 O2 Delivery Room Air DAPHNEY NAIDU MD Dec 26, 2016 12:18
[2016-12-26] MEDS: HYDROcodone/APAP 7.5/325MG 1 TAB TABLET PO PRN (14:14)
--- NOTE | 2016-12-26 18:43 | DS ---
DATE OF DISCHARGE: 12/26/2016 HOSPITAL COURSE: This is postop day #6. He in fact was admitted and on the day of admission had excision of an intra-abdominal tumor and the mesentery from metastatic cancer of the colon. There was not any other evidence of cancer and this was excised. Postoperatively, he has actually done well. He had the normal postoperative pain and ileus and began eating on the second and third postop day clear liquids. He ran a fever on and off for a day or two, but that subsided. White count has been normal throughout. Now, he is up and about, taking normal diet. The wound has healed without complications. No evidence of infection or other problems. There was a question of him having sleep apnea, which he did not have; the study was done and it was normal, I am told. The patient will be followed by me as an outpatient and also by the oncologist and most likely chemotherapy will be started in 3-5 weeks. The wound has healed as stated before without complications and he is having normal GI function with no nausea, vomiting, having flatus and bowel movements. Instructions have been given for no strenuous activity and he would change the dressing p.r.n. and may shower. IMPRESSION: Metastatic cancer of the colon. TRICIA LOPEZ MD DR: BETH/tania JOB#: [id number] / [id number]
== END 2016-12-26 14:42 | disposition home or self-care (01) | DRG 821 ==
LOC: OPSVCIP 10:51 → 4 NORTH 19:00
PROVIDERS: ADMIT Specialist; ATTEND Specialist
PROC: 07BB0ZZ Excision of Mesenteric Lymphatic, Open Approach (ICD-10-PCS; 2016-12-20)
PROC: 0DN80ZZ Release Small Intestine, Open Approach (ICD-10-PCS; principal; 2016-12-20 12:30)
DX: C77.2 Secondary and unspecified malignant neoplasm of intra-abdominal lymph nodes (principal); C18.2 Malignant neoplasm of ascending colon; C78.6 Secondary malignant neoplasm of retroperitoneum and peritoneum; E78.00 Pure hypercholesterolemia, unspecified; E78.5 Hyperlipidemia, unspecified; G47.30 Sleep apnea, unspecified; Z80.8 Family history of malignant neoplasm of other organs or systems; Z85.038 Personal history of other malignant neoplasm of large intestine; Z87.891 Personal history of nicotine dependence; Z90.49 Acquired absence of other specified parts of digestive tract
CPT/HCPCS: 10035; 36415; 80048; 80053; 82378; 85025; 85610; 88305; 88331; 94799; 99152; 99153; A4215; C1765; J0690; J0780; J1100; J1170; J1885; J2250; J2270; J2405; J2704; J2710; J3010; J3490; J7030; J7120; S0028; J2001

== ENCOUNTER 2017-01-07 08:21 | Day surgery (SDC) | payer MEDICARE ==
[~2017-01-07] VITALS: Ht 172.7 cm; Wt 69.9 kg
[~2017-01-07 08:21] MED LIST changes: -ceFAZolin 1GM IVPB FOR OMNI 1 GM/50 ML BAG IV ONE; -metroNIDAZOLE 500mg PREMIX 500 MG/100 ML BAG IV ONE
[2017-01-07] MEDS ORDERED: IV RINGERS,LACTATED 1000ML 1,000 ML IV SCH (09:30)
[2017-01-07] MEDS ORDERED: LIDOCAINE 2% PF Vial for OR 5 ML VIAL. ONE (09:40)
[2017-01-07] MEDS ORDERED: PROPOFOL 20 ML IV ONE (09:40)
[2017-01-07] MEDS ORDERED: fentaNYL PF VIAL 100 MCG/2 ML VIAL ONE (09:41)
[2017-01-07] MEDS ORDERED: MIDAZOLAM HCL/PF 2 MG/2 ML VIAL. ONE (09:41)
[2017-01-07 10:21] LABS: INR 1.1 (0.8-1.1); PROTHROMBIN TIME PATIENT 13.4 SEC (11.7-14.0)
[2017-01-07] MEDS ORDERED: HEPARIN PF 500 UNIT/5 ML DISP.SYRIN. IV ONE ×2 (10:46→11:41)
[2017-01-07] MEDS ORDERED: IOHEXOL 300 MG/ML 50 ML VIAL. ONE (10:46)
[2017-01-07] MEDS ORDERED: BUPIVAC MPF-EPI 0.5%-1:200000 10 ML VIAL. ONE (10:47)
--- NOTE | 2017-01-07 11:11 | PDOC1 ---
History and Physical Date of Admission Date of Admission DATE: 01/07/17 TIME: 11:07 History of Present Illness History of Present Illness CA colon with mesentery mets now for port for chemorx. Past Medical History Past Medical History As above and now for chemorx. Offer before and he did not have it. Now with mesenteric met excised he will have chemorx. Past Surgical History Past Surgical History Hemicolectomy and lap with excision intra abd met. Social History Smoke: No ALCOHOL: rare Current Medications Current Medications Current Medications Cefazolin Sodium 50 ml @ 100 mls/hr 1X ONCE IV ; Start 01/07/17 at 07:45; Stop 01/07/17 at 08:14; Status DC Ringer's Solution 1,000 ml @ 75 mls/hr [id number] IV Last administered on t 09:00; Start 01/07/17 at 09:30 Propofol 20 ml @ As Directed STK-MED ONCE IV ; Start 01/07/17 at 09:40; Stop 01/07/17 at 09:41; Status DC Lidocaine HCl (Lidocaine Pf 2% Vial) 5 ml STK-MED ONCE .ROUTE ; Start 01/07/17 at 09:40; Stop 01/07/17 at 09:41; Status DC Midazolam HCl (Versed) 2 mg STK-MED ONCE .ROUTE ; Start 01/07/17 at 09:41; Stop 01/07/17 at 09:42; Status DC Fentanyl Citrate (Fentanyl 2ml Vial) 100 mcg STK-MED ONCE .ROUTE ; Start at 09:41; Stop 01/07/17 at 09:42; Status DC Iohexol (Omnipaque 300 Mg/ml) 50 ml STK-MED ONCE .ROUTE ; Start 01/07/17 at 10: 46; Stop 01/07/17 at 10:47; Status DC Heparin Sodium (Porcine) (Hep Lock Adult) 500 unit STK-MED ONCE IV ; Start at 10:46; Stop 01/07/17 at 10:47; Status DC Bupivacaine HCl/ Epinephrine Bitart (Sensorcain-Mpf Epi 0.5%-1:057838) 10 ml STK -MED ONCE .ROUTE ; Start 01/07/17 at 10:47; Stop 01/07/17 at 10:48; Status DC Active Scripts Active Reported Aspirin 81 Mg Tab.chew 81 Mg PO DAILY Allergies Allergies: Coded Allergies: No Known Drug Allergies (Unverified , 12/20/16) Physical Exam General: Alert, Oriented X3, Cooperative, No acute distress HEENT: PERRLA Lungs: Clear to auscultation, Normal air movement Breasts: Normal, Rt breast nml w/o mass, Lt breast nml w/o mass, Nipples normal Abdomen: No tenderness, No hepatosplenomegaly, Other Rectal Exam: not examined Vitals Vitals Vital Signs Date Time Temp Pulse Resp B/P (MAP) Pulse Ox O2 Delivery O2 Flow Rate FiO2 01/07/17 09:02 74 18 99 01/07/17 08:56 119/80 Room Air Labs Labs Laboratory Tests Test 01/07/17 10:00 Prothrombin Time 13.4 SEC (11.7-14.0) Prothromb Time International Ratio 1.1 (0.8-1.1) Activated Partial Thromboplast Time 30 SEC (24-38) Laboratory Tests Test 01/07/17 10:00 Prothrombin Time 13.4 SEC (11.7-14.0) Prothromb Time International Ratio 1.1 (0.8-1.1) Activated Partial Thromboplast Time 30 SEC (24-38) VTE Prophylaxis Ordered VTE Prophylaxis Devices: Yes VTE Pharmacological Prophylaxi: Contraindicated TRICIA LOPEZ MD Jan 07, 2017 11:11
--- NOTE | 2017-01-07 11:15 | PDOC ---
SURGICAL PROGRESS NOTE Subjective Op Note: Surgeon............................................Charly Pre and post op diag..........................CA colon with one mesenteric britney met Anesthesia........................................general Procedure.........................................Port-a cath insertion Drains..............................................none Blood loss........................................10cc Fluids..............................................see anesthesia sheet Condition.........................................satisfactory Vital Signs Vital Signs Date Time Temp Pulse Resp B/P (MAP) Pulse Ox O2 Delivery O2 Flow Rate FiO2 01/07/17 09:02 74 18 99 01/07/17 08:56 119/80 Room Air Labs Laboratory Tests Test 01/07/17 10:00 Prothrombin Time 13.4 SEC (11.7-14.0) Prothromb Time International Ratio 1.1 (0.8-1.1) Activated Partial Thromboplast Time 30 SEC (24-38) Laboratory Tests Test 01/07/17 10:00 Prothrombin Time 13.4 SEC (11.7-14.0) Prothromb Time International Ratio 1.1 (0.8-1.1) Activated Partial Thromboplast Time 30 SEC (24-38) TRICIA LOPEZ MD Jan 07, 2017 11:15
[2017-01-07] MEDS ORDERED: DEXAMETHASONE SOD PHOS 20 MG/5 ML VIAL. ONE (11:25)
[2017-01-07] MEDS ORDERED: ONDANSETRON PF 4 MG/2 ML VIAL. ONE (11:25)
[2017-01-07] MEDS ORDERED: SEVOFLURANE 61 TO 120 MINUTES. IH ONE (11:46)
[2017-01-07] MEDS ORDERED: PHENYLEPHRINE in 0.9% NACL PF 1 MG/10 ML DISP.SYRIN. IV ONE (12:06)
[2017-01-07 13:51] VITALS: BP 141/76
--- NOTE | 2017-01-07 15:40 | RAD ---
Intraoperative fluoroscopic support 01/07/2017 Indication: Port placement Discussion: Intraoperative fluoroscopic support s was provided. Static images were submitted to PACS. Fluoroscopy time: 25 seconds. Exposures: 4 Static images demonstrate a port catheter with tip approximately at the cavoatrial junction. No gross abnormalities are detected. Refer to operative notes for details. Impression: Intraoperative fluoroscopic support was provided
--- NOTE | 2017-01-08 08:57 | OP ---
DATE OF SURGERY: 01/07/2017 SURGEON: Abel Lopez MD PREOPERATIVE DIAGNOSIS: Carcinoma of the colon with metastasis to mesenteric lymph node area with need for chemotherapy. POSTOPERATIVE DIAGNOSIS: Carcinoma of the colon with metastasis to mesenteric lymph node area with need for chemotherapy. ANESTHESIA: General. PROCEDURE: Insertion of Port-A-Cath. TECHNIQUE: Under general anesthesia, the patient was properly prepped and draped in a routine fashion. Both sides were draped and prepped on the right and left subclavicular areas. We then, with the patient in Trendelenburg position, passed a needle under the clavicle and opened first rib at the junction of the middle and medial third of the clavicle and punctured the vein. We aspirated back venous blood and then passed a guidewire into the superior vena cava proven by C-arm. We then placed the patient in reverse Trendelenburg and then made a iesha in the skin and dilated the area and then passed a dilator and sheath over the guidewire. The guidewire was removed along with the trocar and the sheath was in place and we placed the appropriate end of the catheter into the port and into the superior vena cava proven by C-arm again. We then placed it in the heart, the right atrium and left it in place. We did flush it with heparinized saline solution 100 units per mL. We flushed it with about 2-3 mL. We then made an incision on the anterior left chest wall maybe 4-6 inches below the clavicle or just to the left of the midline. We then went through the skin with the 15 blade and went into the subcutaneous with cautery. We then pulled up with rake retractors and then using cautery developed a pocket into the area and put the port in, so that it would fit properly. Everything was fitting. The port was in good position and then we left the pocket alone. We then passed the trocar on to the end of the catheter and toned it from the entrance site to the superior portion of the port site. We brought this out ____. We then flushed the catheter with Isovue and then pulled it back, so that it would be in the superior vena cava just at the heart. We then marked an area and knew this was the port, the place that we wanted to have it and then with the port in place, cut the catheter, so that it would fit properly. We then passed the locking device over the catheter in the proper position and then passed the catheter over the nipple of the port and then locked it in place with the locking device. This clicked in place normally. We then used the Drummond needle to aspirate blood easily and then flushed it again with heparinized saline solution. At this time, we used about 4 mL. This was 100 units per mL. The port was placed in its pocket and sutured in place with 2-0 silk suture into the ____ on either side of the port and attached this to the fascia. The port was now in good position with no problems. Locking device and the catheter were in place. We again aspirated venous blood using the Drummond needle and then flushed it with heparinized saline solution about 5 mL, 100 units per mL. The procedure now being terminated, we then approximated the wound. We closed the deeper tissues using subcuticular 4-0 Vicryl and the skin was closed using a subcuticular 5-0 Vicryl. A sterile Tegaderm dressing was applied and the procedure was terminated. The blood loss was probably 5 mL. Fluids given can be obtained from the anesthesia sheet. No drains were used and the condition of the patient was satisfactory as he is returned to the recovery room. We will get a chest x-ray. ABEL LOPEZ MD DR: BETH/tania JOB#: [id number] / [id number]
== END 2017-01-07 14:37 | disposition home or self-care (01) ==
LOC: SURG 08:21
PROVIDERS: ATTEND Specialist
DX: C18.9 Malignant neoplasm of colon, unspecified (principal); C78.6 Secondary malignant neoplasm of retroperitoneum and peritoneum; Z86.69 Personal history of other diseases of the nervous system and sense organs; Z72.89 Other problems related to lifestyle; Z79.01 Long term (current) use of anticoagulants
CPT/HCPCS: 36415; 36561; 85610; 85730; J0690; J1100; J2250; J2370; J2405; J2704; J3010; J7120; Q9967; 36556; C1788; J3490; J2001

== ENCOUNTER → 2020-05-09 | Outpatient (CLI) | payer MEDICARE ==
[~2020-05-09] MED LIST changes: +ALBU2.5V8 INH; +AMLO-186 PO; +ATOR40TA59 PO; +FLUT1BLS3 IH; +GABA300C18 PO
--- NOTE | 2020-05-09 15:48 | HP ---
ADMIT DATE: 05/09/2020 HISTORY OF PRESENT ILLNESS: The patient's history is that he has had a colon resection for carcinoma of the colon and is taking chemotherapy after that. He had a port put in at that time and they have been using it since. He now has no symptoms. He has recovered completely from this surgery and is having no difficulties. PAST MEDICAL HISTORY: Does show that he has had hyperlipidemia and he has had a colon cancer and the colon surgery for that and also had a node removed after this. No other symptoms and has been on chemotherapy on and off. He has been doing well since then. ALLERGIES: The patient has no allergies. PAST SURGICAL HISTORY: No other surgeries. 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 This is going away and is much better than it was. SOCIAL HISTORY: Shows that he smoked up until about 2017, stopped then end since then has developed some wheezing and they do not know if he has COPD or asthma, but he has inhalers for that. He has smoking history. He does not use illicit drugs and does not drink. PHYSICAL EXAMINATION: GENERAL: Shows an alert male, in no acute distress. HEAD, EYES, NOSE AND THROAT: Grossly normal. CHEST: Clear at this point to auscultation bilaterally. HEART: Had no murmurs, heaves, friction rubs or thrills. ABDOMEN: Soft, no organomegaly was noted. There were no masses and he has a midline scar from the previous surgery with no hernia formation. GENITALIA: Grossly normal. EXTREMITIES: Grossly normal. IMPRESSION: 1. Status post colon resection with no need for Port-A-Cath any longer. The last time we did try it, it was not working well. 2. Chronic obstructive pulmonary disease. 3. Hyperlipidemia plan PLAN: We plan to remove the Port-A-Cath under local anesthesia. TRICIA LOPEZ MD DR: BETH/tania JOB#: [id number] / [id number]
== END ==
LOC: LAB 09:09
PROVIDERS: ATTEND Specialist
DX: Z01.812 Encounter for preprocedural laboratory examination (principal); Z20.822 Contact with and (suspected) exposure to COVID-19
CPT/HCPCS: U0003

== ENCOUNTER → 2020-05-11 | Day surgery (SDC) | payer MEDICARE ==
[~2020-05-11] MED LIST changes: +LIDOCAINE 2% Multi-Dose 20 ML VIAL. IJ ONE; +LIDOCAINE 2%/EPI 1:100,000 20 ML VIAL. INJ ONE
[2020-05-11 10:32] VITALS: BP 115/73
--- NOTE | 2020-05-11 11:59 | PDOC ---
SURGICAL PROGRESS NOTE DATE: 05/11/20 TIME: 11:56 No change in dictated H&P Vital Signs Vital Signs Date Time Temp Pulse Resp B/P (MAP) Pulse Ox O2 Delivery O2 Flow Rate FiO2 05/11/20 10:32 70 20 98 Justicifation of Admission Dx: Justifications for Admission: Justification of Admission Dx: Yes TRICIA LOPEZ MD May 11, 2020 11:59
--- NOTE | 2020-05-11 12:04 | PDOC ---
SURGICAL PROGRESS NOTE DATE: 05/11/20 TIME: 12:01 Op Note: Surgeon.......................................................Charly Pre and post op diag......................................CA colon Anesthesia...................................................1% lidocaine with epi Procedure....................................................Remove port-a-cath on the left Drains.........................................................none Fluids..........................................................none Blood loss....................................................3cc Condition.....................................................satisfactory Vital Signs Vital Signs Date Time Temp Pulse Resp B/P (MAP) Pulse Ox O2 Delivery O2 Flow Rate FiO2 05/11/20 10:32 70 20 98 Justicifation of Admission Dx: Justifications for Admission: Justification of Admission Dx: Yes TRICIA LOPEZ MD May 11, 2020 12:04
--- NOTE | 2020-05-11 12:08 | DISCH ---
DISCHARGE INSTRUCTIONS Condition on Discharge Condition on Discharge: Stable Activity After Discharge Activity Instructions for Disc: Other, see below Bathing Instructions: Shower-keep dressing dry Lifting Instructions after Dis: No heavy lifting, No pulling or pushing, Do not lift >10 pounds Diet after Discharge Diet after Discharge: Regular Wound Incision Care Wound/Incision Care: Keep wound elevated, Change dressing, Do not change dressing Other wound/incision instructi: may shower..leve dressing on as long ass [id number] Follow-Up Follow up with: call and make appt to see me in 2-3 weeks. Treatment/Equipment after DC Adaptive Equipment Issued: None TRICIA LOPEZ MD May 11, 2020 12:08
--- NOTE | 2020-05-11 15:46 | PREOP HP ---
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 He had a port put in at that time and they have been using it since. He now has no symptoms. He has recovered completely from this surgery and is having no difficulties. PAST MEDICAL HISTORY: Does show that he has had hyperlipidemia and he has had a colon cancer and the colon surgery for that and also had a node removed after this. No other symptoms and has been on chemotherapy on and off. He has been doing well since then. ALLERGIES: The patient has no allergies. PAST SURGICAL HISTORY: No other surgeries. 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 This is going away and is much better than it was. SOCIAL HISTORY: Shows that he smoked up until about 2017, stopped then end since then has developed some wheezing and they do not know if he has COPD or asthma, but he has inhalers for that. He has smoking history. He does not use illicit drugs and does not drink. PHYSICAL EXAMINATION: GENERAL: Shows an alert male, in no acute distress. HEAD, EYES, NOSE AND THROAT: Grossly normal. CHEST: Clear at this point to auscultation bilaterally. HEART: Had no murmurs, heaves, friction rubs or thrills. ABDOMEN: Soft, no organomegaly was noted. There were no masses and he has a midline scar from the previous surgery with no hernia formation. GENITALIA: Grossly normal. EXTREMITIES: Grossly normal. IMPRESSION: 1. Status post colon resection with no need for Port-A-Cath any longer. The last time we did try it, it was not working well. 2. Chronic obstructive pulmonary disease. 3. Hyperlipidemia plan PLAN: We plan to remove the Port-A-Cath under local anesthesia. TRICIA LOPEZ MD DR: BETH/tania JOB#: [id number] / [id number] KRISHNA
--- NOTE | 2020-05-11 16:09 | OP ---
DATE OF SURGERY: SURGEON: Abel Lopez MD PREOPERATIVE DIAGNOSIS: Cancer of the colon, treated, no longer need for Port-A-Cath. POSTOPERATIVE DIAGNOSIS: Cancer of the colon, treated, no longer need for Port-A-Cath. ANESTHESIA: 1% lidocaine with epinephrine. PROCEDURE: Removal of Port-A-Cath, left chest. TECHNIQUE: Under local anesthesia, the area had been properly prepped with Betadine solution. We then used 1% lidocaine to anesthetize the previous scar and tissues around it. We then made an incision with a 15 blade in the old scar. We carried this down through the skin and through the scar tissue. We could feel the Port-A-Cath and its attachments there and then proceeded to go down. We went down using cautery, so as not to cut the tubing or have any damage to that. We got to the capsule. We used Metzenbaum scissors to go around this and opened up the capsule. The sutures, which were silk, were then placed. These were divided and the catheter was able to be pulled up mostly. Some of the tissues in the dependent port of the opening and there where a stitch had not been placed inferiorly kept in place and we had to divide the scar tissue. The port was then exteriorized and the port was removed without difficulties. We did test the port and placed the Drummond needle into the port flushed it with saline and there was no blockage of the port. We then inspected the wound and used 4-0 Vicryl to approximate the deeper tissues, and then 4-0 Vicryl interrupted to approximate the deep dermis and more superficial tissues, 5-0 Vicryl subcuticular was used to close the wound. The procedure was then terminated as sterile Tegaderm dressing was applied. The blood loss was probably 3 mL. Fluids given can be obtained from the anesthesia sheet, which there were no fluids. No drains were used and as stated before, the blood loss was about 3 mL. The condition of the patient satisfactory as he will stay with his torso elevated for about 6 hours. ABEL LOPEZ MD DR: BETH/tania JOB#: [id number] / [id number] KRISHNA
--- NOTE | 2020-05-16 16:20 | PATHOLOGY ---
[facility] Accession Number: [id number] . 01 Material submitted: . chest - GROSS PORT A CATH . 01 Clinical history: . REMOVE PORT-A-CATH NO LONGER NEED PORT-A-CATH REMOVAL PORT-A-CATH . 02 Diagnosis: Port-A-Cath (Gross only) (JPM:pit 05/16/2020) QTP 05/16/2020 1435 Local . 02 Electronically signed: . Matthew Mendez MD, Pathologist NPI- [id number] . 01 Gross description: . Received fresh labeled "Arthur Carlin, uziel Port-A-Cath" is a triangular-shaped purple port measuring 3.0 x 2.8 x 1.8 cm with an attached portion of white rubbery tubing measuring 33.5 cm in length. The port displays the markings: CT, BARD, [id number]. Tissue is not present. No abnormalities are grossly identified. A photograph is taken. The specimen is received for gross identification only. [place] [place] [facility] 05/16/2020 1141 Local . 02 Pathologist provided ICD-10: Z45.2 . 02 CPT . 919428 Specimen Comment: A courtesy copy of this report has been sent to [phone], [phone] Specimen Comment: [phone] Specimen Comment: Report sent to / DR DE GUZMAN Performed at: 01 [facility] [address], [place] [id number] MD Jerome Tom MD Phone: [phone] Performed at: 02 [facility] [address], [place] [id number] MD Matthew Mendez MD Phone: [phone]
== END | disposition home or self-care (01) ==
LOC: SURG 10:06
PROVIDERS: ATTEND Specialist
DX: C18.9 Malignant neoplasm of colon, unspecified (principal); I10 Essential (primary) hypertension; E78.00 Pure hypercholesterolemia, unspecified; J44.9 Chronic obstructive pulmonary disease, unspecified; Z87.891 Personal history of nicotine dependence; Z79.82 Long term (current) use of aspirin; Z79.899 Other long term (current) drug therapy; Z98.890 Other specified postprocedural states; Z72.89 Other problems related to lifestyle
CPT/HCPCS: 36590; 88300